=== PATIENT | female | born 1965 | race Caucasian/White ===

== ENCOUNTER → 2018-01-19 | Outpatient (CLI) | payer OTHER ==
[2018-01-19 13:04] LABS: Alanine Aminotransfer (ALT/SGP 39 U/L (12-78); Albumin, Blood 3.2 g/dL (3.4-5.0); Albumin/Globulin Ratio 0.7 (0.8-1.8); Alk Phos 92 U/L (50-136); Anion Gap 11 mmol/L (6-16); Aspartate Aminotrans (AST/SGOT 35 U/L (12-37); Bilirubin, Total 0.2 mg/dL (0.1-1.0); Blood Urea Nitrogen 15 mg/dL (8-24); Bun/Creatinine Ratio 19.2 (12.0-20.0); CHOL/HDL RATIO 3.1; CO2, Blood 25 mmol/L (21-32); Calcium, Blood 9.1 mg/dL (8.5-10.1); Chloride, Blood 103 mmol/L (98-108); Cholesterol 158 mg/dL (50-200); Creatinine, Blood 0.78 mg/dL (0.40-1.00); Globulin, Blood 4.4 g/dL (2.2-4.0); Glomerular Filtration Rate >60 (60-); Glucose, Blood 200 mg/dL (70-99); HDL Cholesterol 51 mg/dL (>39); LDL/HDL RATIO 1.4; Low Density Lipoprotein Chol 70 mg/dL (0-110); Potassium, Blood 4.4 mmol/L (3.5-5.5); Sodium, Blood 139 mmol/L (136-145); Total Protein, Blood 7.6 g/dL (6.4-8.2); Triglycerides 185 mg/dL (30-160); Very Low Density Lipoprot Chol 37 mg/dL (6-32)
== END ==
LOC: LAB SHORT 09:35
PROVIDERS: Nurse Practitioner Family
DX: Z11.59 Encounter for screening for other viral diseases (principal); E11.9 Type 2 diabetes mellitus without complications
CPT/HCPCS: 80053; 80061; 82607; 82746; 83036

== ENCOUNTER → 2018-02-19 | Outpatient (CLI) | payer OTHER ==
[~2018-02-19] MED LIST: AMLO10 PO; BENZ100A; Benazepril HCl10 MG PO; FOLI1 PO; FURO20 PO; Flurbiprofen100 MG; Glucophage1000 MG PO; INS70/30I SC; Omeprazole20 M1 PO; TRAZ150T57 PO
== END ==
LOC: LAB SHORT 09:12 → LAB EV 09:12
DX: E11.9 Type 2 diabetes mellitus without complications (principal)
CPT/HCPCS: 82043

== ENCOUNTER 2018-12-13 14:28 | Emergency (ER) | payer OTHER ==
[~2018-12-13] VITALS: Ht 165.1 cm; Wt 74.4 kg
[~2018-12-13 14:28] MED LIST changes: +ASPI81CH PO
[2018-12-13 15:02] LABS: BASOPHILS ABSOLUTE AUTO 0.04 K/mm3 (0.00-0.23); BASOPHILS PERCENT AUTO 0 % (0-2); EOSINOPHILS ABSOLUTE AUTO 0.16 K/mm3 (0.00-0.68); EOSINOPHILS PERCENT AUTO 1 % (0-6); Hematocrit 41.1 % (33.0-51.0); Hemoglobin 13.1 g/dL (11.5-16.0); IMMATURE GRAN ABSOLUTE AUTO 0.04 K/mm3 (0.00-0.10); IMMATURE GRAN PERCENT AUTO 0 % (0-1); LYMPHOCYTES ABSOLUTE AUTO 3.74 K/mm3 (0.84-5.20); LYMPHOCYTES PERCENT AUTO 29 % (21-46); MONOCYTES ABSOLUTE AUTO 0.76 K/mm3 (0.16-1.47); MONOCYTES PERCENT AUTO 6 % (4-13); Mean Corpuscular HGB 31.7 pg (26.0-34.0); Mean Corpuscular HGB Conc 31.9 g/dL (31.5-36.5); Mean Corpuscular Volume 100 fL (80-100); NEUTROPHILS ABSOLUTE AUTO 8.26 K/mm3 (1.96-9.15); NEUTROPHILS PERCENT AUTO 64 % (41-73); Platelet Count 432 K/mm3 (150-400); RDW Coefficient Variation 13.2 % (11.7-14.2); RDW Standard Deviation 48.1 fL (35.1-46.3); Red Blood Cell Count 4.13 M/mm3 (3.80-5.20)
[2018-12-13 15:41] LABS: Alanine Aminotransfer (ALT/SGP 23 U/L (12-78); Albumin, Blood 3.6 g/dL (3.4-5.0); Albumin/Globulin Ratio 0.8 (0.8-1.8); Alk Phos 80 U/L (50-136); Anion Gap 8 mmol/L (6-16); Aspartate Aminotrans (AST/SGOT 15 U/L (12-37); Bilirubin, Total 0.2 mg/dL (0.1-1.0); Blood Urea Nitrogen 9 mg/dL (8-24); Bun/Creatinine Ratio 12.7 (12.0-20.0); CO2, Blood 26 mmol/L (21-32); Calcium, Blood 9.5 mg/dL (8.5-10.1); Chloride, Blood 103 mmol/L (98-108); Creatinine, Blood 0.71 mg/dL (0.40-1.00); Globulin, Blood 4.6 g/dL (2.2-4.0); Glomerular Filtration Rate >60 (60-); Glucose, Blood 67 mg/dL (70-99); Potassium, Blood 3.7 mmol/L (3.5-5.5); Sodium, Blood 137 mmol/L (136-145); Total Protein, Blood 8.2 g/dL (6.4-8.2)
== END 2018-12-13 16:46 | disposition home or self-care (01) ==
LOC: ER 14:28
PROVIDERS: Physician Assistant
DX: G43.909 Migraine, unspecified, not intractable, without status migrainosus (principal); E11.9 Type 2 diabetes mellitus without complications; M06.9 Rheumatoid arthritis, unspecified; Z88.8 Allergy status to other drugs, medicaments and biological substances; Z79.82 Long term (current) use of aspirin; Z79.4 Long term (current) use of insulin; Z79.899 Other long term (current) drug therapy; Z87.891 Personal history of nicotine dependence
CPT/HCPCS: 36415; 80053; 85025; 96374; 96375; 99284-25; J0780; J1100; J1200; J1885

== ENCOUNTER → 2019-02-05 | Outpatient (CLI) | payer OTHER ==
[2019-02-07 17:06] LABS: HPV 16 Negative (Negative); HPV 18 Negative (Negative); HPV OTHER HR TYPES Negative (Negative)
== END | disposition home or self-care (01) ==
LOC: LAB 16:45 → LAB SHORT 16:45
PROVIDERS: Registered Nurse
DX: R87.612 Low grade squamous intraepithelial lesion on cytologic smear of cervix (LGSIL) (principal)
CPT/HCPCS: 87624; G0145

== ENCOUNTER → 2019-10-04 | Outpatient (CLI) | payer OTHER | END | disposition home or self-care (01) | LOC: LAB SHORT 08:12 → LAB 08:12 | DX: B35.1 Tinea unguium (principal) | CPT/HCPCS: 87210; 88305; 88312 ==

== ENCOUNTER 2020-10-31 18:16 | Emergency (ER) | payer OTHER ==
[~2020-10-31] VITALS: Ht 165.1 cm; Wt 82.5 kg
[2020-10-31] MEDS ORDERED: VENL75ER PO ×2 (18:49→20:42)
[2020-10-31] MEDS ORDERED: VERA180ERB PO (20:38)
[2020-10-31] MEDS ORDERED: Flurbiprofen100 MG PO (20:40)
[2020-10-31] MEDS ORDERED: FERSU300 PO (20:40)
[2020-10-31] MEDS ORDERED: BUTALB-ACETAMI1 EAC6 PO (20:41)
== END 2020-10-31 23:05 | disposition home or self-care (01) ==
LOC: ER 18:16
DX: G43.909 Migraine, unspecified, not intractable, without status migrainosus (principal); E11.9 Type 2 diabetes mellitus without complications; Z79.4 Long term (current) use of insulin; Z87.891 Personal history of nicotine dependence; Z79.899 Other long term (current) drug therapy
CPT/HCPCS: 36415; 70450; 96372-59; 96374; 96375; 99284-25; J1200; J1885; J2765; J3030; J7030

== ENCOUNTER 2021-04-21 10:33 | Day surgery (SDC) | payer OTHER ==
[~2021-04-21 10:33] MED LIST changes: +BUTALB-ACETAMI1 EAC6 PO; +FERSU300 PO; +Flurbiprofen100 MG PO; +VENL75ER PO; +VERA180ERB PO
--- NOTE | 2021-04-21 14:24 | NUR ---
04/21/21 1424 Miryam Araujo (Bre PT ATE AT 0900, NOTIFIED. DR VENESSA CORREA TO PROCEED WITH LOCAL ONLY, NO SEDATION. PT AGREEABLE. BEDSIDE INJECTION PERFORMED IN PRE-OP 5ML 2% LIDOCAINE WITH EPI 1:100,000 INJECTED BY SURGEON. PT TOLERATED WELL.
== END 2021-04-21 13:20 | disposition home or self-care (01) ==
LOC: ORSCSDS 10:33
PROVIDERS: Orthopaedic Surgery
PROC: 0LN70ZZ Release Right Hand Tendon, Open Approach (ICD-10-PCS; principal; 2021-04-21 12:00)
DX: M65.321 Trigger finger, right index finger (principal); M65.331 Trigger finger, right middle finger; I10 Essential (primary) hypertension; E66.9 Obesity, unspecified; Z68.30 Body mass index [BMI] 30.0-30.9, adult; E11.9 Type 2 diabetes mellitus without complications; Z79.4 Long term (current) use of insulin; Z79.899 Other long term (current) drug therapy
CPT/HCPCS: 82947; J0690; J7120

== ENCOUNTER → 2021-04-29 | Outpatient (CLI) | payer OTHER ==
[2021-04-29 15:27] LABS: BASOPHILS ABSOLUTE AUTO 0.07 K/mm3 (0.00-0.23); BASOPHILS PERCENT AUTO 1 % (0-2); EOSINOPHILS ABSOLUTE AUTO 0.27 K/mm3 (0.00-0.68); EOSINOPHILS PERCENT AUTO 3 % (0-6); Hematocrit 43.1 % (33.0-51.0); Hemoglobin 14.3 g/dL (11.5-16.0); IMMATURE GRAN ABSOLUTE AUTO 0.02 K/mm3 (0.00-0.10); IMMATURE GRAN PERCENT AUTO 0 % (0-1); LYMPHOCYTES PERCENT AUTO 36 % (21-46); MONOCYTES ABSOLUTE AUTO 0.63 K/mm3 (0.16-1.47); MONOCYTES PERCENT AUTO 6 % (4-13); Mean Corpuscular HGB Conc 33.2 g/dL (31.5-36.5); Mean Corpuscular Volume 93 fL (80-100); Mean Platelet Volume 9.5 fL (9.1-12.4); NEUTROPHILS ABSOLUTE AUTO 5.88 K/mm3 (1.96-9.15); NEUTROPHILS PERCENT AUTO 55 % (41-73); Platelet Count 432 K/mm3 (150-400); RDW Coefficient Variation 13.2 % (11.7-14.2); RDW Standard Deviation 45.4 fL (35.1-46.3); Red Blood Cell Count 4.62 M/mm3 (3.80-5.20); White Blood Cell Count 10.67 K/mm3 (4.00-11.30)
[2021-04-29 16:24] LABS: Albumin, Blood 3.5 g/dL (3.4-5.0); Albumin/Globulin Ratio 0.7 (0.8-1.8); Bilirubin, Total 0.3 mg/dL (0.1-1.0); Bun/Creatinine Ratio 11.2 (12.0-20.0); Calcium, Blood 9.5 mg/dL (8.5-10.1); Creatinine, Blood 0.98 mg/dL (0.40-1.00); Globulin, Blood 4.8 g/dL (2.2-4.0); Total Protein, Blood 8.3 g/dL (6.4-8.2)
== END | disposition home or self-care (01) ==
LOC: LAB 14:32 → LAB SHORT 14:32
PROVIDERS: Internal Medicine Rheumatology
DX: M05.9 Rheumatoid arthritis with rheumatoid factor, unspecified (principal)
CPT/HCPCS: 80053; 85025; 85651

== ENCOUNTER 2021-05-25 01:56 | Day surgery (SDC) | payer OTHER ==
[~2021-05-25] VITALS: Wt 85.6 kg
[~2021-05-25 01:56] MED LIST changes: +AZAT50 PO; +DICLOFENAC SOD100 GM TOP; +HYDSUL200; +INFLECTRA100 MG IV; +METF500 PO; +METO50ER PO; +RIZATRIPTAN10 MG SL; +TRULICITY1.5 MG/0.1 SC
[2021-05-25 14:28] LABS: BASOPHILS PERCENT AUTO 1 % (0-2); EOSINOPHILS ABSOLUTE AUTO 0.28 K/mm3 (0.00-0.68); EOSINOPHILS PERCENT AUTO 2 % (0-6); Hematocrit 43.1 % (33.0-51.0); Hemoglobin 14.4 g/dL (11.5-16.0); IMMATURE GRAN ABSOLUTE AUTO 0.03 K/mm3 (0.00-0.10); IMMATURE GRAN PERCENT AUTO 0 % (0-1); LYMPHOCYTES PERCENT AUTO 32 % (21-46); MONOCYTES ABSOLUTE AUTO 0.65 K/mm3 (0.16-1.47); MONOCYTES PERCENT AUTO 6 % (4-13); Mean Corpuscular HGB 30.6 pg (26.0-34.0); Mean Corpuscular HGB Conc 33.4 g/dL (31.5-36.5); Mean Corpuscular Volume 92 fL (80-100); Mean Platelet Volume 9.6 fL (9.1-12.4); NEUTROPHILS ABSOLUTE AUTO 6.94 K/mm3 (1.96-9.15); NEUTROPHILS PERCENT AUTO 59 % (41-73); NRBC ABSOLUTE 0.02 K/mm3 (0.00-0.02); NRBC Auto 0.2 /100 WBC (0.0-0.2); Platelet Count 428 K/mm3 (150-400); RDW Coefficient Variation 13.3 % (11.7-14.2); RDW Standard Deviation 45.3 fL (35.1-46.3)
== END 2021-05-25 16:22 | disposition home or self-care (01) ==
LOC: ATC 01:56
PROVIDERS: Internal Medicine Rheumatology
DX: M05.9 Rheumatoid arthritis with rheumatoid factor, unspecified (principal)
CPT/HCPCS: 84450; 85025; 85651; 96413; 96415; A9270; J7050; Q5103

== ENCOUNTER 2021-07-28 05:00 | Day surgery (SDC) | payer OTHER ==
[2021-07-28] MEDS ORDERED: CODEINE-GUAIFE120 M1 (09:18)
[2021-07-28 09:37] LABS: BASOPHILS ABSOLUTE AUTO 0.09 K/mm3 (0.00-0.23); BASOPHILS PERCENT AUTO 1 % (0-2); EOSINOPHILS ABSOLUTE AUTO 0.69 K/mm3 (0.00-0.68); EOSINOPHILS PERCENT AUTO 7 % (0-6); Hematocrit 41.6 % (33.0-51.0); Hemoglobin 13.7 g/dL (11.5-16.0); IMMATURE GRAN ABSOLUTE AUTO 0.03 K/mm3 (0.00-0.10); IMMATURE GRAN PERCENT AUTO 0 % (0-1); LYMPHOCYTES ABSOLUTE AUTO 2.95 K/mm3 (0.84-5.20); LYMPHOCYTES PERCENT AUTO 31 % (21-46); MONOCYTES ABSOLUTE AUTO 0.62 K/mm3 (0.16-1.47); MONOCYTES PERCENT AUTO 6 % (4-13); Mean Corpuscular HGB 31.1 pg (26.0-34.0); Mean Corpuscular HGB Conc 32.9 g/dL (31.5-36.5); Mean Corpuscular Volume 95 fL (80-100); Mean Platelet Volume 9.3 fL (9.1-12.4); NEUTROPHILS ABSOLUTE AUTO 5.27 K/mm3 (1.96-9.15); NEUTROPHILS PERCENT AUTO 55 % (41-73); Platelet Count 416 K/mm3 (150-400); RDW Coefficient Variation 14.2 % (11.7-14.2); RDW Standard Deviation 49.2 fL (35.1-46.3); White Blood Cell Count 9.65 K/mm3 (4.00-11.30)
== END 2021-07-28 11:06 | disposition home or self-care (01) ==
LOC: ATC 05:00
PROVIDERS: Internal Medicine Rheumatology
DX: M05.9 Rheumatoid arthritis with rheumatoid factor, unspecified (principal)
CPT/HCPCS: 84450; 85025; 85651; 96413; 96415; A9270; J7050; Q5103

== ENCOUNTER 2021-09-22 01:39 | Day surgery (SDC) | payer OTHER ==
[~2021-09-22 01:39] MED LIST changes: +CODEINE-GUAIFE120 M1
[2021-09-22 09:46] LABS: BASOPHILS ABSOLUTE AUTO 0.05 K/mm3 (0.00-0.23); BASOPHILS PERCENT AUTO 1 % (0-2); EOSINOPHILS ABSOLUTE AUTO 0.43 K/mm3 (0.00-0.68); EOSINOPHILS PERCENT AUTO 5 % (0-6); Hemoglobin 13.6 g/dL (11.5-16.0); IMMATURE GRAN ABSOLUTE AUTO 0.02 K/mm3 (0.00-0.10); IMMATURE GRAN PERCENT AUTO 0 % (0-1); LYMPHOCYTES ABSOLUTE AUTO 2.02 K/mm3 (0.84-5.20); LYMPHOCYTES PERCENT AUTO 23 % (21-46); MONOCYTES ABSOLUTE AUTO 0.49 K/mm3 (0.16-1.47); MONOCYTES PERCENT AUTO 6 % (4-13); Mean Corpuscular HGB 31.8 pg (26.0-34.0); Mean Corpuscular HGB Conc 33.2 g/dL (31.5-36.5); Mean Corpuscular Volume 96 fL (80-100); Mean Platelet Volume 9.6 fL (9.1-12.4); NEUTROPHILS ABSOLUTE AUTO 5.98 K/mm3 (1.96-9.15); NEUTROPHILS PERCENT AUTO 66 % (41-73); Platelet Count 362 K/mm3 (150-400); RDW Coefficient Variation 13.1 % (11.7-14.2); RDW Standard Deviation 46.5 fL (35.1-46.3); Red Blood Cell Count 4.28 M/mm3 (3.80-5.20); White Blood Cell Count 8.99 K/mm3 (4.00-11.30)
== END 2021-09-22 12:02 | disposition home or self-care (01) ==
LOC: ATC 01:39
PROVIDERS: Internal Medicine Rheumatology
DX: M05.9 Rheumatoid arthritis with rheumatoid factor, unspecified (principal)
CPT/HCPCS: 84450; 85025; 85651; A9270; J7050; Q5103

== ENCOUNTER 2022-01-14 00:32 | Day surgery (SDC) | payer OTHER ==
[2022-01-14 09:48] LABS: BASOPHILS ABSOLUTE AUTO 0.07 K/mm3 (0.00-0.23); BASOPHILS PERCENT AUTO 1 % (0-2); EOSINOPHILS ABSOLUTE AUTO 0.36 K/mm3 (0.00-0.68); EOSINOPHILS PERCENT AUTO 3 % (0-6); Hematocrit 41.9 % (33.0-51.0); Hemoglobin 13.7 g/dL (11.5-16.0); IMMATURE GRAN ABSOLUTE AUTO 0.02 K/mm3 (0.00-0.10); IMMATURE GRAN PERCENT AUTO 0 % (0-1); LYMPHOCYTES PERCENT AUTO 27 % (21-46); MONOCYTES ABSOLUTE AUTO 0.55 K/mm3 (0.16-1.47); MONOCYTES PERCENT AUTO 5 % (4-13); Mean Corpuscular HGB 31.6 pg (26.0-34.0); Mean Corpuscular HGB Conc 32.7 g/dL (31.5-36.5); Mean Corpuscular Volume 97 fL (80-100); Mean Platelet Volume 9.2 fL (9.1-12.4); NEUTROPHILS PERCENT AUTO 64 % (41-73); Platelet Count 403 K/mm3 (150-400); RDW Coefficient Variation 13.1 % (11.7-14.2); Red Blood Cell Count 4.34 M/mm3 (3.80-5.20)
--- NOTE | 2022-01-14 11:51 | NUR ---
LABS WERE DRAWN BY JAIMEE SILVA VIA IV START PER HOSPITAL PROTOCOL
== END 2022-01-14 11:40 | disposition home or self-care (01) ==
LOC: LAB 00:32 → ATC 00:32
PROVIDERS: Internal Medicine Rheumatology
DX: M05.9 Rheumatoid arthritis with rheumatoid factor, unspecified (principal); I10 Essential (primary) hypertension; G44.89 Other headache syndrome; E11.9 Type 2 diabetes mellitus without complications; Z87.891 Personal history of nicotine dependence
CPT/HCPCS: 84450; 85025; 85651; A9270; J7050; Q5103

== ENCOUNTER 2022-03-11 00:41 | Day surgery (SDC) | payer OTHER ==
[~2022-03-11] VITALS: Wt 87.0 kg
[2022-03-11 09:43] LABS: BASOPHILS ABSOLUTE AUTO 0.05 K/mm3 (0.00-0.23); BASOPHILS PERCENT AUTO 0 % (0-2); EOSINOPHILS ABSOLUTE AUTO 0.28 K/mm3 (0.00-0.68); EOSINOPHILS PERCENT AUTO 2 % (0-6); Hematocrit 40.8 % (33.0-51.0); Hemoglobin 13.5 g/dL (11.5-16.0); IMMATURE GRAN ABSOLUTE AUTO 0.04 K/mm3 (0.00-0.10); IMMATURE GRAN PERCENT AUTO 0 % (0-1); LYMPHOCYTES ABSOLUTE AUTO 2.52 K/mm3 (0.84-5.20); LYMPHOCYTES PERCENT AUTO 20 % (21-46); MONOCYTES PERCENT AUTO 3 % (4-13); Mean Corpuscular HGB 31.2 pg (26.0-34.0); Mean Corpuscular HGB Conc 33.1 g/dL (31.5-36.5); Mean Corpuscular Volume 94 fL (80-100); Mean Platelet Volume 9.7 fL (9.1-12.4); NEUTROPHILS ABSOLUTE AUTO 9.39 K/mm3 (1.96-9.15); NEUTROPHILS PERCENT AUTO 74 % (41-73); Platelet Count 514 K/mm3 (150-400); RDW Coefficient Variation 12.5 % (11.7-14.2); RDW Standard Deviation 43.2 fL (35.1-46.3); Red Blood Cell Count 4.33 M/mm3 (3.80-5.20); White Blood Cell Count 12.68 K/mm3 (4.00-11.30)
== END 2022-03-11 11:44 | disposition home or self-care (01) ==
LOC: ATC 00:41
PROVIDERS: Internal Medicine Rheumatology
DX: M05.9 Rheumatoid arthritis with rheumatoid factor, unspecified (principal); I10 Essential (primary) hypertension; E11.9 Type 2 diabetes mellitus without complications; Z88.5 Allergy status to narcotic agent; Z88.8 Allergy status to other drugs, medicaments and biological substances; Z79.899 Other long term (current) drug therapy; Z79.84 Long term (current) use of oral hypoglycemic drugs; Z79.4 Long term (current) use of insulin
CPT/HCPCS: 84450; 85025; 85651; 96413; 96415; A9270; J7050; Q5103

== ENCOUNTER 2022-05-12 01:24 | Day surgery (SDC) | payer OTHER ==
[2022-05-12 09:36] LABS: BASOPHILS ABSOLUTE AUTO 0.05 K/mm3 (0.00-0.23); BASOPHILS PERCENT AUTO 0 % (0-2); EOSINOPHILS ABSOLUTE AUTO 0.37 K/mm3 (0.00-0.68); EOSINOPHILS PERCENT AUTO 3 % (0-6); Hematocrit 39.6 % (33.0-51.0); Hemoglobin 12.7 g/dL (11.5-16.0); IMMATURE GRAN ABSOLUTE AUTO 0.04 K/mm3 (0.00-0.10); IMMATURE GRAN PERCENT AUTO 0 % (0-1); LYMPHOCYTES ABSOLUTE AUTO 2.91 K/mm3 (0.84-5.20); LYMPHOCYTES PERCENT AUTO 25 % (21-46); MONOCYTES ABSOLUTE AUTO 0.55 K/mm3 (0.16-1.47); MONOCYTES PERCENT AUTO 5 % (4-13); Mean Corpuscular HGB 30.1 pg (26.0-34.0); Mean Corpuscular HGB Conc 32.1 g/dL (31.5-36.5); Mean Corpuscular Volume 94 fL (80-100); Mean Platelet Volume 9.2 fL (9.1-12.4); NEUTROPHILS ABSOLUTE AUTO 7.94 K/mm3 (1.96-9.15); NEUTROPHILS PERCENT AUTO 67 % (41-73); Platelet Count 418 K/mm3 (150-400); RDW Coefficient Variation 13.4 % (11.7-14.2); RDW Standard Deviation 45.3 fL (35.1-46.3); Red Blood Cell Count 4.22 M/mm3 (3.80-5.20); White Blood Cell Count 11.86 K/mm3 (4.00-11.30)
== END 2022-05-12 12:05 | disposition home or self-care (01) ==
LOC: ATC 01:24
PROVIDERS: Internal Medicine Rheumatology
DX: M05.9 Rheumatoid arthritis with rheumatoid factor, unspecified (principal); I10 Essential (primary) hypertension; E11.9 Type 2 diabetes mellitus without complications; Z88.5 Allergy status to narcotic agent; Z88.8 Allergy status to other drugs, medicaments and biological substances; Z79.84 Long term (current) use of oral hypoglycemic drugs; Z79.899 Other long term (current) drug therapy
CPT/HCPCS: 84450; 85025; 85651; A9270; J7050; Q5103

== ENCOUNTER 2022-07-07 01:05 | Day surgery (SDC) | payer OTHER ==
[~2022-07-07] VITALS: Wt 88.3 kg
[2022-07-07 09:28] LABS: BASOPHILS ABSOLUTE AUTO 0.06 K/mm3 (0.00-0.23); BASOPHILS PERCENT AUTO 1 % (0-2); EOSINOPHILS ABSOLUTE AUTO 0.33 K/mm3 (0.00-0.68); EOSINOPHILS PERCENT AUTO 3 % (0-6); Hematocrit 40.7 % (33.0-51.0); Hemoglobin 13.3 g/dL (11.5-16.0); IMMATURE GRAN ABSOLUTE AUTO 0.04 K/mm3 (0.00-0.10); IMMATURE GRAN PERCENT AUTO 0 % (0-1); LYMPHOCYTES ABSOLUTE AUTO 2.75 K/mm3 (0.84-5.20); LYMPHOCYTES PERCENT AUTO 21 % (21-46); MONOCYTES ABSOLUTE AUTO 0.61 K/mm3 (0.16-1.47); MONOCYTES PERCENT AUTO 5 % (4-13); Mean Corpuscular HGB 30.4 pg (26.0-34.0); Mean Corpuscular HGB Conc 32.7 g/dL (31.5-36.5); Mean Corpuscular Volume 93 fL (80-100); NEUTROPHILS ABSOLUTE AUTO 9.33 K/mm3 (1.96-9.15); NEUTROPHILS PERCENT AUTO 71 % (41-73); Platelet Count 465 K/mm3 (150-400); RDW Coefficient Variation 13.1 % (11.7-14.2); RDW Standard Deviation 44.4 fL (35.1-46.3); Red Blood Cell Count 4.38 M/mm3 (3.80-5.20); White Blood Cell Count 13.12 K/mm3 (4.00-11.30)
== END 2022-07-07 11:50 | disposition home or self-care (01) ==
LOC: ATC 01:05
PROVIDERS: Internal Medicine Rheumatology
DX: M05.9 Rheumatoid arthritis with rheumatoid factor, unspecified (principal); Z88.5 Allergy status to narcotic agent; Z88.8 Allergy status to other drugs, medicaments and biological substances; G44.89 Other headache syndrome
CPT/HCPCS: 84450; 85025; 85651; 96413; 96415; A9270; J7050; Q5103

== ENCOUNTER 2022-09-15 01:22 | Day surgery (SDC) | payer OTHER ==
[~2022-09-15] VITALS: Wt 89.7 kg
[2022-09-15] MEDS ORDERED: AMIT25 PO (13:53)
[2022-09-15] MEDS ORDERED: BYDUREON B2 MG/0.81 SC (13:54)
[2022-09-15] MEDS ORDERED: HAIR, SKIN AND1 EAC3 PO (13:54)
[2022-09-15] MEDS ORDERED: MULVITA PO (13:55)
[2022-09-15 14:27] LABS: BASOPHILS ABSOLUTE AUTO 0.07 K/mm3 (0.00-0.23); BASOPHILS PERCENT AUTO 1 % (0-2); EOSINOPHILS ABSOLUTE AUTO 0.32 K/mm3 (0.00-0.68); EOSINOPHILS PERCENT AUTO 2 % (0-6); Hematocrit 39.4 % (33.0-51.0); Hemoglobin 13.2 g/dL (11.5-16.0); IMMATURE GRAN ABSOLUTE AUTO 0.04 K/mm3 (0.00-0.10); IMMATURE GRAN PERCENT AUTO 0 % (0-1); LYMPHOCYTES ABSOLUTE AUTO 3.69 K/mm3 (0.84-5.20); LYMPHOCYTES PERCENT AUTO 26 % (21-46); MONOCYTES ABSOLUTE AUTO 0.63 K/mm3 (0.16-1.47); MONOCYTES PERCENT AUTO 5 % (4-13); Mean Corpuscular HGB 30.8 pg (26.0-34.0); Mean Corpuscular HGB Conc 33.5 g/dL (31.5-36.5); Mean Corpuscular Volume 92 fL (80-100); Mean Platelet Volume 9.5 fL (9.1-12.4); NEUTROPHILS ABSOLUTE AUTO 9.38 K/mm3 (1.96-9.15); NEUTROPHILS PERCENT AUTO 66 % (41-73); Platelet Count 474 K/mm3 (150-400); RDW Coefficient Variation 13.6 % (11.7-14.2); RDW Standard Deviation 45.7 fL (35.1-46.3); Red Blood Cell Count 4.28 M/mm3 (3.80-5.20); White Blood Cell Count 14.13 K/mm3 (4.00-11.30)
== END 2022-09-15 16:04 | disposition home or self-care (01) ==
LOC: ATC 01:22
PROVIDERS: Internal Medicine Rheumatology
DX: M05.9 Rheumatoid arthritis with rheumatoid factor, unspecified (principal); Z88.5 Allergy status to narcotic agent; Z88.8 Allergy status to other drugs, medicaments and biological substances; I10 Essential (primary) hypertension; E11.9 Type 2 diabetes mellitus without complications
CPT/HCPCS: 84450; 85025; 85651; 96413; 96415; A9270; J7050; Q5103

== ENCOUNTER 2022-11-10 01:16 | Day surgery (SDC) | payer OTHER ==
[~2022-11-10 01:16] MED LIST changes: +AMIT25 PO; +BYDUREON B2 MG/0.81 SC; +HAIR, SKIN AND1 EAC3 PO; +MULVITA PO
[2022-11-10 09:06] VITALS: BP 137/86
[2022-11-10 09:22] LABS: BASOPHILS ABSOLUTE AUTO 0.06 K/mm3 (0.00-0.23); BASOPHILS PERCENT AUTO 1 % (0-2); EOSINOPHILS ABSOLUTE AUTO 0.19 K/mm3 (0.00-0.68); EOSINOPHILS PERCENT AUTO 2 % (0-6); Hematocrit 40.1 % (33.0-51.0); Hemoglobin 13.6 g/dL (11.5-16.0); IMMATURE GRAN ABSOLUTE AUTO 0.04 K/mm3 (0.00-0.10); IMMATURE GRAN PERCENT AUTO 0 % (0-1); LYMPHOCYTES ABSOLUTE AUTO 2.81 K/mm3 (0.84-5.20); LYMPHOCYTES PERCENT AUTO 22 % (21-46); MONOCYTES ABSOLUTE AUTO 0.53 K/mm3 (0.16-1.47); MONOCYTES PERCENT AUTO 4 % (4-13); Mean Corpuscular HGB Conc 33.9 g/dL (31.5-36.5); Mean Corpuscular Volume 91 fL (80-100); Mean Platelet Volume 9.2 fL (9.1-12.4); NEUTROPHILS ABSOLUTE AUTO 9.36 K/mm3 (1.96-9.15); NEUTROPHILS PERCENT AUTO 72 % (41-73); Platelet Count 477 K/mm3 (150-400); RDW Coefficient Variation 13.2 % (11.7-14.2); RDW Standard Deviation 44.5 fL (35.1-46.3); Red Blood Cell Count 4.39 M/mm3 (3.80-5.20); White Blood Cell Count 12.99 K/mm3 (4.00-11.30)
== END 2022-11-10 12:15 | disposition home or self-care (01) ==
LOC: ATC 01:16
PROVIDERS: Internal Medicine Rheumatology
DX: M05.9 Rheumatoid arthritis with rheumatoid factor, unspecified (principal)
CPT/HCPCS: 84450; 85025; 85651; 96413; 96415; A9270; J7050; Q5103

== ENCOUNTER → 2023-05-11 | Outpatient (CLI) | payer OTHER ==
[2023-05-11 16:57] LABS: BASOPHILS ABSOLUTE AUTO 0.04 K/mm3 (0.00-0.23); BASOPHILS PERCENT AUTO 0 % (0-2); EOSINOPHILS PERCENT AUTO 1 % (0-6); Hematocrit 38.8 % (33.0-51.0); IMMATURE GRAN ABSOLUTE AUTO 0.04 K/mm3 (0.00-0.10); IMMATURE GRAN PERCENT AUTO 0 % (0-1); LYMPHOCYTES ABSOLUTE AUTO 3.61 K/mm3 (0.84-5.20); LYMPHOCYTES PERCENT AUTO 25 % (21-46); MONOCYTES ABSOLUTE AUTO 0.56 K/mm3 (0.16-1.47); MONOCYTES PERCENT AUTO 4 % (4-13); Mean Corpuscular HGB 30.5 pg (26.0-34.0); Mean Corpuscular HGB Conc 33.5 g/dL (31.5-36.5); Mean Corpuscular Volume 91 fL (80-100); Mean Platelet Volume 9.4 fL (9.1-12.4); NEUTROPHILS ABSOLUTE AUTO 10.11 K/mm3 (1.96-9.15); NEUTROPHILS PERCENT AUTO 69 % (41-73); Platelet Count 404 K/mm3 (150-400); RDW Coefficient Variation 12.8 % (11.7-14.2); RDW Standard Deviation 41.5 fL (35.1-46.3); Red Blood Cell Count 4.26 M/mm3 (3.80-5.20); White Blood Cell Count 14.56 K/mm3 (4.00-11.30)
[2023-05-11 17:33] LABS: Albumin, Blood 3.5 g/dL (3.4-5.0); Albumin/Globulin Ratio 0.7 (0.8-1.8); Bilirubin, Total 0.2 mg/dL (0.1-1.0); Bun/Creatinine Ratio 13.3 (12.0-20.0); Creatinine, Blood 0.82 mg/dL (0.40-1.00); Globulin, Blood 4.8 g/dL (2.2-4.0); Potassium, Blood 3.9 mmol/L (3.5-5.5); Total Protein, Blood 8.3 g/dL (6.4-8.2)
== END | disposition home or self-care (01) ==
LOC: LAB 15:25 → LAB SHORT 15:25
PROVIDERS: Internal Medicine Rheumatology
DX: M05.9 Rheumatoid arthritis with rheumatoid factor, unspecified (principal)
CPT/HCPCS: 80053; 85025; 85651

== ENCOUNTER → 2023-07-11 | Outpatient (CLI) | payer OTHER ==
[2023-07-13 11:54] LABS: Stool Occult Bld Immuno 1 Negative (NEGATIVE)
== END | disposition home or self-care (01) ==
LOC: LAB SHORT 12:55 → LAB 12:55 → LAB SHORT 07-12 12:55
PROVIDERS: Family Medicine
DX: Z12.11 Encounter for screening for malignant neoplasm of colon (principal)
CPT/HCPCS: G0328

== ENCOUNTER → 2023-08-16 | Outpatient (CLI) | payer OTHER ==
[2023-08-16 11:57] LABS: BASOPHILS ABSOLUTE AUTO 0.05 K/mm3 (0.00-0.23); BASOPHILS PERCENT AUTO 1 % (0-2); EOSINOPHILS ABSOLUTE AUTO 0.18 K/mm3 (0.00-0.68); EOSINOPHILS PERCENT AUTO 2 % (0-6); Hematocrit 39.2 % (33.0-51.0); IMMATURE GRAN ABSOLUTE AUTO 0.02 K/mm3 (0.00-0.10); IMMATURE GRAN PERCENT AUTO 0 % (0-1); LYMPHOCYTES ABSOLUTE AUTO 3.33 K/mm3 (0.84-5.20); LYMPHOCYTES PERCENT AUTO 32 % (21-46); MONOCYTES ABSOLUTE AUTO 0.49 K/mm3 (0.16-1.47); MONOCYTES PERCENT AUTO 5 % (4-13); Mean Corpuscular HGB 30.5 pg (26.0-34.0); Mean Corpuscular HGB Conc 33.2 g/dL (31.5-36.5); Mean Corpuscular Volume 92 fL (80-100); Mean Platelet Volume 9.3 fL (9.1-12.4); NEUTROPHILS ABSOLUTE AUTO 6.21 K/mm3 (1.96-9.15); NEUTROPHILS PERCENT AUTO 60 % (41-73); Platelet Count 394 K/mm3 (150-400); RDW Coefficient Variation 13.1 % (11.7-14.2); RDW Standard Deviation 43.8 fL (35.1-46.3); Red Blood Cell Count 4.26 M/mm3 (3.80-5.20); White Blood Cell Count 10.28 K/mm3 (4.00-11.30)
[2023-08-16 12:46] LABS: Albumin, Blood 3.5 g/dL (3.4-5.0); Albumin/Globulin Ratio 0.8 (0.8-1.8); Bilirubin, Total 0.3 mg/dL (0.1-1.0); Bun/Creatinine Ratio 15.6 (12.0-20.0); Calcium, Blood 9.5 mg/dL (8.5-10.1); Creatinine, Blood 0.77 mg/dL (0.40-1.00); Globulin, Blood 4.6 g/dL (2.2-4.0); Potassium, Blood 3.8 mmol/L (3.5-5.5); Total Protein, Blood 8.1 g/dL (6.4-8.2)
== END ==
LOC: LAB SHORT 10:58 → LAB 10:58
PROVIDERS: Internal Medicine Rheumatology
DX: M05.9 Rheumatoid arthritis with rheumatoid factor, unspecified (principal)
CPT/HCPCS: 80053; 85025; 85651

== ENCOUNTER → 2024-10-10 | Outpatient (CLI) | payer OTHER ==
[2024-10-10 13:04] LABS: BASOPHILS ABSOLUTE AUTO 0.04 K/mm3 (0.00-0.23); BASOPHILS PERCENT AUTO 0 % (0-2); EOSINOPHILS ABSOLUTE AUTO 0.28 K/mm3 (0.00-0.68); EOSINOPHILS PERCENT AUTO 3 % (0-6); Hematocrit 40.4 % (33.0-51.0); Hemoglobin 13.7 g/dL (11.5-16.0); IMMATURE GRAN ABSOLUTE AUTO 0.02 K/mm3 (0.00-0.10); IMMATURE GRAN PERCENT AUTO 0 % (0-1); LYMPHOCYTES PERCENT AUTO 33 % (21-46); MONOCYTES ABSOLUTE AUTO 0.57 K/mm3 (0.16-1.47); MONOCYTES PERCENT AUTO 5 % (4-13); Mean Corpuscular HGB 31.6 pg (26.0-34.0); Mean Corpuscular HGB Conc 33.9 g/dL (31.5-36.5); Mean Corpuscular Volume 93 fL (80-100); Mean Platelet Volume 9.6 fL (9.1-12.4); NEUTROPHILS ABSOLUTE AUTO 6.13 K/mm3 (1.96-9.15); NEUTROPHILS PERCENT AUTO 58 % (41-73); Platelet Count 390 K/mm3 (150-400); RDW Standard Deviation 44.3 fL (35.1-46.3); Red Blood Cell Count 4.33 M/mm3 (3.80-5.20); White Blood Cell Count 10.54 K/mm3 (4.00-11.30)
[2024-10-10 13:21] LABS: Albumin, Blood 3.6 g/dL (3.4-5.0); Albumin/Globulin Ratio 0.8 (0.8-1.8); Bilirubin, Total 0.5 mg/dL (0.1-1.0); Bun/Creatinine Ratio 11.9 (12.0-20.0); Calcium, Blood 9.5 mg/dL (8.5-10.1); Creatinine, Blood 0.76 mg/dL (0.40-1.00); Globulin, Blood 4.6 g/dL (2.2-4.0); Potassium, Blood 3.8 mmol/L (3.5-5.5); Total Protein, Blood 8.2 g/dL (6.4-8.2)
== END ==
LOC: LAB SHORT 11:25 → LAB 11:25
PROVIDERS: Internal Medicine Rheumatology
DX: M05.9 Rheumatoid arthritis with rheumatoid factor, unspecified (principal)
CPT/HCPCS: 80053; 85025; 85651

== ENCOUNTER 2025-04-14 11:53 | Inpatient (IN) | payer OTHER ==
[~2025-04-14] VITALS: Ht 165.1 cm; Wt 97.0 kg
[2025-04-14] VITALS (8 sets, daily range): BP systolic 99–174; BP diastolic 51–80
[2025-04-14] MEDS ORDERED: NS 1,000 ML IV SCH ×2 (13:05→19:00)
[2025-04-14 13:39] LABS: Alanine Aminotransfer (ALT/SGP 49.0 U/L (12-78); Albumin, Blood 1.9 g/dL (3.4-5.0); Albumin/Globulin Ratio 0.3 (0.8-1.8); Anion Gap 19.0 mmol/L (3-11); Aspartate Aminotrans (AST/SGOT 80.0 U/L (12-37); Bilirubin, Total 1.0 mg/dL (0.1-1.0); Blood Urea Nitrogen 69.0 mg/dL (8-24); CO2, Blood 19.0 mmol/L (21-32); Calcium, Blood 7.8 mg/dL (8.5-10.1); Chloride, Blood 81.0 mmol/L (98-108); Creatinine, Blood 3.34 mg/dL (0.40-1.00); Globulin, Blood 5.8 g/dL (2.2-4.0); Glucose, Blood 637.0 mg/dL (70-99); Potassium, Blood 4.1 mmol/L (3.5-5.5); Sodium, Blood 115.0 mmol/L (136-145); Total Protein, Blood 7.7 g/dL (6.4-8.2)
[2025-04-14 14:16] LABS: Hematocrit 30.7 % (33.0-51.0); Hemoglobin 11.2 g/dL (11.5-16.0); Mean Corpuscular HGB Conc 36.5 g/dL (31.5-36.5); Mean Corpuscular Volume 87 fL (80-100); NRBC ABSOLUTE 0.00 K/mm3 (0.00-0.02); NRBC Auto 0.0 /100 WBC (0.0-0.2); Platelet Count 157 K/mm3 (150-400); RDW Coefficient Variation 13.4 % (11.7-14.2); RDW Standard Deviation 42.5 fL (35.1-46.3)
[2025-04-14] MEDS ORDERED: CefTRIAXone Sodium 1,000 MG in NS 50 ML IV ONE (14:25)
[2025-04-14 14:27] LABS: pH Blood Venous 7.30 (7.34-7.37)
[2025-04-14 14:35] LABS: BAND PERCENT MAN 2 % (0-8); BASOPHILS ABSOLUTE MAN 0.00 K/mm3 (0.00-0.23); BASOPHILS PERCENT MAN 0 % (0-2); EOSINOPHILS ABSOLUTE MAN 0.00 K/mm3 (0.00-0.68); EOSINOPHILS PERCENT MAN 0 % (0-6); LYMPHOCYTES ABSOLUTE MAN 0.64 K/mm3 (0.84-5.20); LYMPHOCYTES PERCENT MAN 2 % (21-46); MONOCYTES ABSOLUTE MAN 0.97 K/mm3 (0.16-1.47); MONOCYTES PERCENT MAN 3 % (4-13); NEUTROPHILS ABSOLUTE MAN 30.76 K/mm3 (1.96-9.15); SEG NEUTROPHILS PERCENT MAN 93 % (41-73)
[2025-04-14 14:49] LABS: CORONAVIRUS COVID-19 AG Negative (NEGATIVE)
[2025-04-14 15:11] LABS: Source, Urine Voided
[2025-04-14 15:15] LABS: Bilirubin, Urine Neg (Neg); Color, Urine Yellow (P-Yellow); Glucose Qualitative, Urine 4+ (Neg); Ketones, Urine 2+ (Neg); Leukocyte Esterase, Urine 3+ (Neg); Protein, Urine 3+ (Neg); Specific Gravity, Urine 1.010 (1.003-1.022); Urobilinogen, Urine NORM (Normal)
[2025-04-14 15:22] LABS: White Blood Cells, Urine TNTC /hpf (0-5)
[2025-04-14] MEDS ORDERED: FERROUS GLUCONATE PO (17:23)
[2025-04-14] MEDS ORDERED: AMIT25 PO (17:24)
[2025-04-14] MEDS ORDERED: AMLO10 PO (17:25)
[2025-04-14] MEDS ORDERED: DICLOFENAC 1% TOP (17:26)
[2025-04-14] MEDS ORDERED: Flurbiprofen100 MG PO (17:27)
[2025-04-14] MEDS ORDERED: HYDCHL50 PO (17:29)
[2025-04-14] MEDS ORDERED: Novolog SC (17:30)
[2025-04-14] MEDS ORDERED: BASAGLAR K100 UNIT/6 SC (17:31)
[2025-04-14] MEDS ORDERED: Zestril30 MG PO (17:32)
[2025-04-14] MEDS ORDERED: METFORMIN HCL500 M3 PO (17:33)
[2025-04-14] MEDS ORDERED: METO50ER PO (17:34)
[2025-04-14] MEDS ORDERED: OMEP20ER PO (17:35)
[2025-04-14] MEDS ORDERED: MAXALT10 MG PO (17:36)
[2025-04-14] MEDS ORDERED: TRAZ100 PO (17:37)
[2025-04-14] MEDS ORDERED: Magnesium Hydroxide Conc 10 ML UDC PO PRN (17:50)
[2025-04-14] MEDS ORDERED: Insulin Human Regular 100 UNIT/ML 10ML Vial IV ONE (17:50)
[2025-04-14] MEDS ORDERED: FLU VACC TS2025-26(6MOS UP)/PF 45 MCG/0.5 ML SYRINGE IM ONE (17:55)
[2025-04-14] MEDS ORDERED: Insulin Human Regular 100 UNIT in NS 100 ML IV SCH (18:40)
[2025-04-14] MEDS ORDERED: NS 1,000 ML IV ONE (18:59)
[2025-04-14 19:29] LABS: Anion Gap 21.0 mmol/L (3-11); Blood Urea Nitrogen 67.0 mg/dL (8-24); CO2, Blood 16.0 mmol/L (21-32); Calcium, Blood 7.6 mg/dL (8.5-10.1); Chloride, Blood 83.0 mmol/L (98-108); Creatinine, Blood 3.37 mg/dL (0.40-1.00); Glucose, Blood 638.0 mg/dL (70-99); Potassium, Blood 4.4 mmol/L (3.5-5.5); Sodium, Blood 116.0 mmol/L (136-145)
[2025-04-14 19:40] LABS: C-REACTIVE PROTEIN, EXT RANGE >19.000 mg/dL (0.000-0.300); Glucose, Blood 641 mg/dL (70-99)
[2025-04-14] MEDS ORDERED: Dextrose 50% 50 ML Vial IV PRN (19:40)
[2025-04-14] MEDS ORDERED: Insulin Regular 100 UNIT/ML 10ML Vial IV ONE (19:55)
[2025-04-14] MEDS ORDERED: Lactobacil 2-S.Thermo-Bifido 1 1 Cap PO SCH (21:00)
[2025-04-14] MEDS ORDERED: Piperacillin/Tazobactam Sod 3.375 GM in NS 100 ML IV SCH (21:00)
[2025-04-14 21:03] LABS: Anion Gap 22.0 mmol/L (3-11); Blood Urea Nitrogen 69.0 mg/dL (8-24); CO2, Blood 15.0 mmol/L (21-32); Calcium, Blood 7.8 mg/dL (8.5-10.1); Chloride, Blood 85.0 mmol/L (98-108); Creatinine, Blood 3.32 mg/dL (0.40-1.00); Glucose, Blood 606.0 mg/dL (70-99); Potassium, Blood 3.9 mmol/L (3.5-5.5); Sodium, Blood 118.0 mmol/L (136-145)
[2025-04-14 21:39] LABS: Glucose, Blood 504 mg/dL (70-99)
--- NOTE | 2025-04-14 22:15 | NUR ---
PT HAS INCREASED OXYGEN DEMAND. SWITCHED TO HUMIFIED HIGH FLOW NASAL CANNULA AT 10LPM.
--- NOTE | 2025-04-14 22:24 | NUR ---
ASSUMPTION OF CARE PT ARRIVED TO UNIT APPROX 193. PT IS DROWSY BUT ORIENTED TO SELF, PLACE, DATE/TIME, SITUATION. SINUS TACH IN THE 120S ON MONITOR, STABLE BP WITH MAP >65, SATS ARE LOW 90S ON 5L NC, KUSSMAUL RESPIRATIONS WITH A RATE IN THE HIGH 30S-LOW 40S. PT IS AFEBRILE, DENIES NAUSEA/VOMITING. PT ARRIVES WITH INSULIN DRIP INFUSING IN PIV IN LAC (SEE FLOWSHEET) AND NS INFUSING IN PIV IN LHA. ARRIVES WITH [employer] EXTERNAL DEVICE IN PLACE. CALL LIGHT WITHIN REACH.
[2025-04-14 23:50] LABS: Anion Gap 15.0 mmol/L (3-11); Blood Urea Nitrogen 66.0 mg/dL (8-24); CO2, Blood 20.0 mmol/L (21-32); Calcium, Blood 7.5 mg/dL (8.5-10.1); Chloride, Blood 92.0 mmol/L (98-108); Creatinine, Blood 3.32 mg/dL (0.40-1.00); Glucose, Blood 383.0 mg/dL (70-99); Potassium, Blood 3.7 mmol/L (3.5-5.5); Sodium, Blood 123.0 mmol/L (136-145)
[2025-04-15] VITALS (30 sets, daily range): BP systolic 115–166; BP diastolic 35–114
[2025-04-15 03:13] LABS: Hematocrit 26.8 % (33.0-51.0); Hemoglobin 9.7 g/dL (11.5-16.0); Mean Corpuscular HGB Conc 36.2 g/dL (31.5-36.5); Mean Corpuscular Volume 85 fL (80-100); NRBC ABSOLUTE 0.00 K/mm3 (0.00-0.02); NRBC Auto 0.0 /100 WBC (0.0-0.2); Platelet Count 137 K/mm3 (150-400); RDW Coefficient Variation 13.4 % (11.7-14.2); RDW Standard Deviation 41.8 fL (35.1-46.3)
[2025-04-15 03:32] LABS: BAND PERCENT MAN 5 % (0-8); BASOPHILS ABSOLUTE MAN 0.00 K/mm3 (0.00-0.23); BASOPHILS PERCENT MAN 0 % (0-2); EOSINOPHILS ABSOLUTE MAN 0.00 K/mm3 (0.00-0.68); EOSINOPHILS PERCENT MAN 0 % (0-6); LYMPHOCYTES ABSOLUTE MAN 1.72 K/mm3 (0.84-5.20); LYMPHOCYTES PERCENT MAN 5 % (21-46); MONOCYTES ABSOLUTE MAN 1.72 K/mm3 (0.16-1.47); MONOCYTES PERCENT MAN 5 % (4-13); NEUTROPHILS ABSOLUTE MAN 30.96 K/mm3 (1.96-9.15); SEG NEUTROPHILS PERCENT MAN 85 % (41-73)
[2025-04-15 03:41] LABS: Alanine Aminotransfer (ALT/SGP 45.0 U/L (12-78); Albumin, Blood 1.4 g/dL (3.4-5.0); Albumin/Globulin Ratio 0.3 (0.8-1.8); Anion Gap 13.0 mmol/L (3-11); Aspartate Aminotrans (AST/SGOT 85.0 U/L (12-37); Bilirubin, Total 1.0 mg/dL (0.1-1.0); Blood Urea Nitrogen 64.0 mg/dL (8-24); CO2, Blood 21.0 mmol/L (21-32); Calcium, Blood 7.6 mg/dL (8.5-10.1); Chloride, Blood 95.0 mmol/L (98-108); Creatinine, Blood 3.26 mg/dL (0.40-1.00); Globulin, Blood 5.2 g/dL (2.2-4.0); Glucose, Blood 252.0 mg/dL (70-99); Potassium, Blood 3.7 mmol/L (3.5-5.5); Sodium, Blood 125.0 mmol/L (136-145); Total Protein, Blood 6.6 g/dL (6.4-8.2)
[2025-04-15] MEDS ORDERED: D5W-1/2NS KCl 20mEq 1,000 ML IV SCH (04:00)
[2025-04-15] MEDS ORDERED: Piperacillin/Tazobactam Sod 4.5 GM in NS 100 ML IV SCH ×3 (04:42→21:00)
--- NOTE | 2025-04-15 06:22 | NUR ---
SHIFT SUMMARY PT IS ORIENTED TO SELF, PLACE, DATE/TIME AND SITUATION, SLEEPING BUT EASILY AROUSED AND ABLE TO FOLLOW CONVERSATION AND DIRECTIONS. REMAINS IN SINUS TACH IN THE 120S ON MONITOR, BP STABLE WITH MAP >65. SATS ARE LOW 90S ON AIRVO 40L/66% FIO2, RR HAS SLOWED FROM LOW 40S TO HIGH 20S. PT HAD INCREASED OXYGEN DEMANDS THROUGHOUT SHIFT, SEE NURSES NOTES FOR DETAILS. EXTERNAL FEMALE CATHETER IN PLACE AND ATTACHED TO SUCTION. INSULIN GTT INFUSING VIA PIV AT 6U/HR, D5 1/2 NS 20KCL INFUSING VIA POWERGLIDE IN LUE. DENIES UNMET NEEDS AT THIS TIME, CALL LIGHT WITHIN REACH.
[2025-04-15 06:40] LABS: Anion Gap 13.0 mmol/L (3-11); Blood Urea Nitrogen 64.0 mg/dL (8-24); CO2, Blood 20.0 mmol/L (21-32); Calcium, Blood 7.5 mg/dL (8.5-10.1); Chloride, Blood 97.0 mmol/L (98-108); Creatinine, Blood 3.19 mg/dL (0.40-1.00); Glucose, Blood 187.0 mg/dL (70-99); Potassium, Blood 3.8 mmol/L (3.5-5.5); Sodium, Blood 126.0 mmol/L (136-145)
[2025-04-15] MEDS ORDERED: CefTRIAXone Sodium 1,000 MG in NS 100 ML IV SCH (09:00)
[2025-04-15] MEDS ORDERED: Enoxaparin 30 MG/0.3 ML SYR SC SCH (09:00)
[2025-04-15 10:20] LABS: pH Blood Venous 7.46 (7.34-7.37)
[2025-04-15 10:24] LABS: Anion Gap 11.0 mmol/L (3-11); Blood Urea Nitrogen 64.0 mg/dL (8-24); CO2, Blood 21.0 mmol/L (21-32); Calcium, Blood 7.5 mg/dL (8.5-10.1); Chloride, Blood 98.0 mmol/L (98-108); Creatinine, Blood 3.32 mg/dL (0.40-1.00); Glucose, Blood 173.0 mg/dL (70-99); Potassium, Blood 3.8 mmol/L (3.5-5.5); Sodium, Blood 126.0 mmol/L (136-145)
[2025-04-15] MEDS ORDERED: Vancomycin (Pharmacy Consult) IV SCH (12:00)
[2025-04-15] MEDS ORDERED: AMIT25 PO (15:20)
[2025-04-15 16:10] LABS: Anion Gap 12.0 mmol/L (3-11); Blood Urea Nitrogen 62.0 mg/dL (8-24); CO2, Blood 20.0 mmol/L (21-32); Calcium, Blood 7.6 mg/dL (8.5-10.1); Chloride, Blood 100.0 mmol/L (98-108); Creatinine, Blood 3.32 mg/dL (0.40-1.00); Glucose, Blood 175.0 mg/dL (70-99); Potassium, Blood 3.8 mmol/L (3.5-5.5); Sodium, Blood 128.0 mmol/L (136-145)
[2025-04-15] MEDS ORDERED: D5W LR IV SCH (19:30)
[2025-04-15] MEDS ORDERED: POTASSIUM CHLORIDE IV SCH (19:30)
[2025-04-15 20:36] LABS: Anion Gap 12.0 mmol/L (3-11); Blood Urea Nitrogen 64.0 mg/dL (8-24); CO2, Blood 18.0 mmol/L (21-32); Calcium, Blood 8.1 mg/dL (8.5-10.1); Chloride, Blood 100.0 mmol/L (98-108); Creatinine, Blood 3.24 mg/dL (0.40-1.00); Glucose, Blood 153.0 mg/dL (70-99); Potassium, Blood 4.1 mmol/L (3.5-5.5); Sodium, Blood 126.0 mmol/L (136-145)
--- NOTE | 2025-04-15 21:00 | NUR ---
DR CONSULT DR NOTIFIED OF PT POSASSIUM LEVEL. NO ORDERS RELATED TO K REPLACEMENT AT THIS TIME. LAB ORDERED TO BE RECHECKED IN 4 HOURS @ 0000.
--- NOTE | 2025-04-15 22:13 | NUR ---
DR CONSULT DR WELSH CALLED NURSING STATION FOR UPDATE ON PT. ORDER PLACED FOR POTASSIUM REPLACEMENT R/T LAB RESULT OF K - 4.1 & INSULIN DRIP.
[2025-04-16] VITALS (30 sets, daily range): BP systolic 130–174; BP diastolic 44–106
[2025-04-16 00:58] LABS: Anion Gap 11.0 mmol/L (3-11); Blood Urea Nitrogen 57.0 mg/dL (8-24); CO2, Blood 19.0 mmol/L (21-32); Calcium, Blood 7.6 mg/dL (8.5-10.1); Chloride, Blood 100.0 mmol/L (98-108); Creatinine, Blood 3.22 mg/dL (0.40-1.00); Glucose, Blood 165.0 mg/dL (70-99); Potassium, Blood 4.4 mmol/L (3.5-5.5); Sodium, Blood 126.0 mmol/L (136-145)
--- NOTE | 2025-04-16 02:54 | NUR ---
DR CONSULT PT REPORTS ONSET OF MIRGRAINE. PT REQUESTS HOME MEDICATION. MD ORDER ONE TIME DOSE OF HOME MEDICATION FOR RELIEF.
[2025-04-16] MEDS ORDERED: Rizatriptan Benzoate 10 MG / TAB SoluTab SL ONE (02:55)
[2025-04-16 05:08] LABS: BASOPHILS ABSOLUTE AUTO 0.06 K/mm3 (0.00-0.23); BASOPHILS PERCENT AUTO 0 % (0-2); EOSINOPHILS ABSOLUTE AUTO 0.17 K/mm3 (0.00-0.68); EOSINOPHILS PERCENT AUTO 1 % (0-6); Hematocrit 23.0 % (33.0-51.0); Hemoglobin 8.4 g/dL (11.5-16.0); IMMATURE GRAN ABSOLUTE AUTO 0.37 K/mm3 (0.00-0.10); IMMATURE GRAN PERCENT AUTO 2 % (0-1); LYMPHOCYTES ABSOLUTE AUTO 1.74 K/mm3 (0.84-5.20); LYMPHOCYTES PERCENT AUTO 7 % (21-46); MONOCYTES ABSOLUTE AUTO 0.83 K/mm3 (0.16-1.47); MONOCYTES PERCENT AUTO 3 % (4-13); Mean Corpuscular HGB Conc 36.5 g/dL (31.5-36.5); Mean Corpuscular Volume 87 fL (80-100); NEUTROPHILS ABSOLUTE AUTO 22.08 K/mm3 (1.96-9.15); NEUTROPHILS PERCENT AUTO 87 % (41-73); NRBC ABSOLUTE 0.00 K/mm3 (0.00-0.02); NRBC Auto 0.0 /100 WBC (0.0-0.2); Platelet Count 123 K/mm3 (150-400); RDW Coefficient Variation 13.9 % (11.7-14.2); RDW Standard Deviation 43.6 fL (35.1-46.3)
[2025-04-16 05:41] LABS: Alanine Aminotransfer (ALT/SGP 144 U/L (12-78); Albumin, Blood 1.2 g/dL (3.4-5.0); Albumin/Globulin Ratio 0.3 (0.8-1.8); Aspartate Aminotrans (AST/SGOT 472 U/L (12-37); Bilirubin, Direct 1.6 mg/dL (0.0-0.3); Bilirubin, Indirect 0.4 mg/dL (0.1-0.7); Bilirubin, Total 2.0 mg/dL (0.1-1.0); Blood Urea Nitrogen 49 mg/dL (8-24); CO2, Blood 18 mmol/L (21-32); Calcium, Blood 7.3 mg/dL (8.5-10.1); Chloride, Blood 103 mmol/L (98-108); Creatinine, Blood 2.86 mg/dL (0.40-1.00); Globulin, Blood 4.6 g/dL (2.2-4.0); Glucose, Blood 466 mg/dL (70-99); Magnesium, Blood 1.4 mg/dL (1.6-2.4); Phosphorus, Blood 2.0 mg/dL (2.5-4.9); Sodium, Blood 127 mmol/L (136-145); Total Protein, Blood 5.8 g/dL (6.4-8.2)
[2025-04-16 05:48] LABS: Anion Gap 12 mmol/L (3-11); Potassium, Blood 6.3 mmol/L (3.5-5.5); Vancomycin, Random 18.2 ug/mL
--- NOTE | 2025-04-16 06:19 | NUR ---
SHIFT SUMMARY S/P DKA. A&O x4. FOLLOWS COMMANDS. SPO2 >94% ON ARIVO @ 40L / 70% FIO2. SINUS TACH IN 110s, MAP >65. TOLERATING WATER, DENIES N/V. INSULIN INFUSING @ 3UNITS/HR. FREQUENT VOIDS, BM x2 THIS SHIFT. PT ABLE TO STAND/PIVOT TO BSC c MIN ASSISTANCE. PT AMB TO SINK TO BRUSH TEETH, PT REPORT INCREASED WORK OF BREATHING c AMB, PT UNSTEADY ON FEET WHEN WALKING BACK TO BED. 0500 LAB SAMPLE CONTAMINATED. NOTIFIED OF LAB VALUES & REORDERED ALL AM LABS. AWAITING RESULTS. PT RESTING ON BACK, HOB ELEVATED, CALL LIGHT IN REACH, WILL REPORT TO DAY RN.
[2025-04-16 06:33] LABS: BASOPHILS ABSOLUTE AUTO 0.09 K/mm3 (0.00-0.23); BASOPHILS PERCENT AUTO 0 % (0-2); EOSINOPHILS ABSOLUTE AUTO 0.19 K/mm3 (0.00-0.68); EOSINOPHILS PERCENT AUTO 1 % (0-6); Hematocrit 27.6 % (33.0-51.0); Hemoglobin 10.1 g/dL (11.5-16.0); IMMATURE GRAN ABSOLUTE AUTO 0.54 K/mm3 (0.00-0.10); IMMATURE GRAN PERCENT AUTO 2 % (0-1); LYMPHOCYTES ABSOLUTE AUTO 2.15 K/mm3 (0.84-5.20); LYMPHOCYTES PERCENT AUTO 7 % (21-46); MONOCYTES ABSOLUTE AUTO 0.92 K/mm3 (0.16-1.47); MONOCYTES PERCENT AUTO 3 % (4-13); Mean Corpuscular HGB Conc 36.6 g/dL (31.5-36.5); Mean Corpuscular Volume 85 fL (80-100); NEUTROPHILS ABSOLUTE AUTO 24.99 K/mm3 (1.96-9.15); NEUTROPHILS PERCENT AUTO 87 % (41-73); NRBC ABSOLUTE 0.00 K/mm3 (0.00-0.02); NRBC Auto 0.0 /100 WBC (0.0-0.2); Platelet Count 139 K/mm3 (150-400); RDW Coefficient Variation 14.1 % (11.7-14.2); RDW Standard Deviation 43.8 fL (35.1-46.3)
[2025-04-16] MEDS ORDERED: Piperacillin/Tazobactam Sod 4.5 GM in NS 100 ML IV SCH (08:00)
[2025-04-16 08:33] LABS: Alanine Aminotransfer (ALT/SGP 178 U/L (12-78); Albumin, Blood 1.4 g/dL (3.4-5.0); Albumin/Globulin Ratio 0.3 (0.8-1.8); Anion Gap 16 mmol/L (3-11); Aspartate Aminotrans (AST/SGOT 545 U/L (12-37); Bilirubin, Direct 1.9 mg/dL (0.0-0.3); Bilirubin, Indirect 0.4 mg/dL (0.1-0.7); Bilirubin, Total 2.3 mg/dL (0.1-1.0); Blood Urea Nitrogen 58 mg/dL (8-24); CO2, Blood 20 mmol/L (21-32); Calcium, Blood 8.1 mg/dL (8.5-10.1); Chloride, Blood 96 mmol/L (98-108); Creatinine, Blood 3.52 mg/dL (0.40-1.00); Globulin, Blood 5.6 g/dL (2.2-4.0); Glucose, Blood 162 mg/dL (70-99); Magnesium, Blood 1.5 mg/dL (1.6-2.4); Phosphorus, Blood 2.2 mg/dL (2.5-4.9); Sodium, Blood 127 mmol/L (136-145); Total Protein, Blood 7.0 g/dL (6.4-8.2)
[2025-04-16 08:38] LABS: Potassium, Blood 4.7 mmol/L (3.5-5.5)
[2025-04-16 10:32] LABS: Anion Gap 11.0 mmol/L (3-11); Blood Urea Nitrogen 55.0 mg/dL (8-24); CO2, Blood 19.0 mmol/L (21-32); Calcium, Blood 7.5 mg/dL (8.5-10.1); Chloride, Blood 98.0 mmol/L (98-108); Creatinine, Blood 3.12 mg/dL (0.40-1.00); Glucose, Blood 365.0 mg/dL (70-99); Potassium, Blood 4.8 mmol/L (3.5-5.5); Sodium, Blood 123.0 mmol/L (136-145)
[2025-04-16 12:39] LABS: Vancomycin, Random 20.6 ug/mL
[2025-04-16] MEDS ORDERED: CefTRIAXone Sodium 1,000 MG in NS 100 ML IV SCH (16:00)
[2025-04-16 16:38] LABS: Anion Gap 12.0 mmol/L (3-11); Blood Urea Nitrogen 55.0 mg/dL (8-24); CO2, Blood 19.0 mmol/L (21-32); Calcium, Blood 8.1 mg/dL (8.5-10.1); Chloride, Blood 98.0 mmol/L (98-108); Creatinine, Blood 3.03 mg/dL (0.40-1.00); Glucose, Blood 296.0 mg/dL (70-99); Potassium, Blood 4.4 mmol/L (3.5-5.5); Sodium, Blood 125.0 mmol/L (136-145)
--- NOTE | 2025-04-16 18:28 | NUR ---
Patient continues in ICU with apparent overdose, and gram negative rods found in her urine and blood cultures. Sedation interruption performed at 09:00 to 09:15. Sedation restarted due to increased patient agitation/reaching for ETT. Right pupil found to be larger than left pupil (see Shift Assessment) Dr Scanlon aware, even though patient not following commands during sedation interruption , patient was moving all four extremities and tracking, therefore no further workup done by MD. Spoke with Pratik from Poison control, updated him with latest AST & ALT values (see labs), per Pratik since AST & ALT is trending down, acetylcysteine infusion can be D/C'd when current bag is complete. Levopheod infusion was titrated to MAP >65 this shift, with a high of 6mcg/min to a low and current rate of 2 mcg/min.
--- NOTE | 2025-04-16 18:58 | NUR ---
ASSUMPTION OF CARE RECEIVED REPORT FROM SANTANA HERMOSILLO. PT ASLEEP, RESTING IN BED ON HER L SIDE. HR 121, MAP >65. O2 SAT >93% ON AIRVO 30L @ 32% FiO2. DAY RN REPORTS FREQUENT VOIDS. GLUCOSE CHECKS CURRENTLY Q1 HR R/T UPWARD TREND IN RESULTS. INSULIN INFUSING @ 10UNITS/HR. IV FLUIDS INFUSING @ 150/HR. CALL LIGHT IN REACH.
--- NOTE | 2025-04-16 19:18 | NUR ---
Patient remains on ICU with ongoing treatments for DKA, UTI, CAYDEN and PNA (see MD notes for workup). Patient's supplemental oxygen needs decreased to HFNC 30% Fio2 and 30L during shift. Patient remains on insulin infusion per DKA protocol and D5/LR with potassium for hypoglycemic prevention which per Dr Scanlon to continue with this formula until gap closes. Reviewed 16:[address] Capo MD compared panel with 09:00 results. MD will continue with current interventions as no sigificant changes noted in 16:00 results. Next chemistry panel to be collected at 05:00 as believes there is a low likelihood of gap closing before then.
[2025-04-16] MEDS ORDERED: D5W LR IV SCH (20:30)
[2025-04-16] MEDS ORDERED: POTASSIUM CHLORIDE IV SCH (20:30)
[2025-04-16 22:21] LABS: Albumin, Blood 1.5 g/dL (3.4-5.0); Anion Gap 12 mmol/L (3-11); Blood Urea Nitrogen 54 mg/dL (8-24); CO2, Blood 18 mmol/L (21-32); Calcium, Blood 7.6 mg/dL (8.5-10.1); Chloride, Blood 101 mmol/L (98-108); Creatinine, Blood 2.89 mg/dL (0.40-1.00); Glucose, Blood 143 mg/dL (70-99); Phosphorus, Blood 2.2 mg/dL (2.5-4.9); Potassium, Blood 4.3 mmol/L (3.5-5.5); Sodium, Blood 127 mmol/L (136-145)
[2025-04-17] VITALS (12 sets, daily range): BP systolic 121–159; BP diastolic 47–104
[2025-04-17 06:05] LABS: Hematocrit 26.3 % (33.0-51.0); Hemoglobin 9.6 g/dL (11.5-16.0); Mean Corpuscular HGB Conc 36.5 g/dL (31.5-36.5); Mean Corpuscular Volume 86 fL (80-100); NRBC ABSOLUTE 0.00 K/mm3 (0.00-0.02); NRBC Auto 0.0 /100 WBC (0.0-0.2); Platelet Count 173 K/mm3 (150-400); RDW Coefficient Variation 14.1 % (11.7-14.2); RDW Standard Deviation 43.9 fL (35.1-46.3)
[2025-04-17 06:30] LABS: Albumin, Blood 1.5 g/dL (3.4-5.0); Anion Gap 11 mmol/L (3-11); Blood Urea Nitrogen 51 mg/dL (8-24); CO2, Blood 19 mmol/L (21-32); Calcium, Blood 7.8 mg/dL (8.5-10.1); Chloride, Blood 99 mmol/L (98-108); Creatinine, Blood 2.76 mg/dL (0.40-1.00); Glucose, Blood 168 mg/dL (70-99); Phosphorus, Blood 2.6 mg/dL (2.5-4.9); Potassium, Blood 4.2 mmol/L (3.5-5.5); Sodium, Blood 125 mmol/L (136-145)
--- NOTE | 2025-04-17 06:54 | NUR ---
SHIFT SUMMARY S/P DKA. A&O x4. FOLLOWS COMMANDS. SPO2 >90% ON HFNC @ 3L. SINUS TACH IN 110s, MAP >65. TOLERATING WATER/ICE CHIPS, DENIES N/V. INSULIN INFUSING @ 2.6UNITS/HR. Q1 GLUCOSE CHECKS. D5LR c 10KCL INFUSING @ 125mL/HR. FREQUENT VOIDS/BMs THIS SHIFT. PT ABLE TO STAND/PIVOT TO BSC c MIN ASSISTANCE. PT SAT IN CHAIR FOR APPROX 1HR. PT DID NOT SLEEP WELL OVERNIGHT. PT REPORTS SOME BACK PAIN R/T PROLONGED TIMES LYING IN BED. PT RESTING ON R SIDE, HOB ELEVATED, CALL LIGHT IN REACH, WILL REPORT TO DAY RN.
[2025-04-17] MEDS ORDERED: GuaiFENesin 100 MG/5 ML 5ML UDC PO PRN (11:10)
[2025-04-17] MEDS ORDERED: Insulin Regular 100 UNIT/ML 10ML Vial SC SCH (11:30)
[2025-04-17] MEDS ORDERED: Insulin Glargine 100 Unit/ML 3 ML SYR SC SCH (12:00)
[2025-04-17] MEDS ORDERED: Insulin Glargine-Yfgn 100 Unit/mL 3 ML SYR SC SCH (12:00)
[2025-04-17] MEDS ORDERED: Insulin Human Lispro 100 Units/ML 3ML Syringe SC SCH (12:30)
[2025-04-17 14:47] LABS: Albumin, Blood 1.4 g/dL (3.4-5.0); Anion Gap 14 mmol/L (3-11); Blood Urea Nitrogen 52 mg/dL (8-24); CO2, Blood 18 mmol/L (21-32); Calcium, Blood 7.7 mg/dL (8.5-10.1); Chloride, Blood 98 mmol/L (98-108); Creatinine, Blood 2.71 mg/dL (0.40-1.00); Glucose, Blood 213 mg/dL (70-99); Phosphorus, Blood 3.0 mg/dL (2.5-4.9); Potassium, Blood 4.2 mmol/L (3.5-5.5); Sodium, Blood 126 mmol/L (136-145)
--- NOTE | 2025-04-17 17:46 | NUR ---
SHIFT SUMMARY: PT REMAINS A&O X 4, ABLE TO COMMUNICATE NEEDS. PT DENIES PAIN. PT REMAINS ON 3L OF OXYGEN, SPO2 ABOVE 92% PT C/O SOB WITH ACTIVITY, RECOVERS QUICKLY. PT IN SR TO ST, 98-110, BP STABLE. PT OFF INSULIN DRIP SINCE 1238, TRANSITIONED TO SUBQ. PT TOLERATING PO INTAKE, DENIES NAUSEA. PT USING BSC WITH 1 PERSON ASSIST, PT C/O FREQUENCY WITH URINATION. LOOSE SMALL BM THIS SHIFT. PT UP IN CHAIR FOR ALL MEALS.
[2025-04-17] MEDS ORDERED: NS 250 ML IV PRN (18:00)
--- NOTE | 2025-04-17 21:30 | NUR ---
PT TRANSFER: PT TRANSFER FROM ICU 12 TO MED FLOOR ROOM 303 AT [id number]. PT REPORT GIVE BY ADIS MAIL MESSENGER CONTRACTOR AT 1827. PT ARRIVED IN WHEELCHAIR WITH PERSON THINGS (TABLET, PURSE AND PHONE CHARGE). PT VS TAKEN AND WEIGHT TAKEN. PT ORIENTED TO ROOM AD GIVEN A SHOWER PER PT AND ICU NURSE REQUEST.
[2025-04-17 22:54] LABS: Albumin, Blood 1.5 g/dL (3.4-5.0); Anion Gap 12 mmol/L (3-11); Blood Urea Nitrogen 54 mg/dL (8-24); CO2, Blood 21 mmol/L (21-32); Calcium, Blood 7.8 mg/dL (8.5-10.1); Chloride, Blood 97 mmol/L (98-108); Creatinine, Blood 2.63 mg/dL (0.40-1.00); Glucose, Blood 192 mg/dL (70-99); Phosphorus, Blood 3.2 mg/dL (2.5-4.9); Potassium, Blood 4.3 mmol/L (3.5-5.5); Sodium, Blood 126 mmol/L (136-145)
--- NOTE | 2025-04-18 03:09 | NUR ---
SHIFT SUMMARY: PT WAS AN ICU TRANSFER AT THE BEGINING OF SHIFT. PT IS AOX4 AND ABLE TO MAKE NEEDS KNOWN. PT HAS TELE IN PLACE AND A POWERGLIDE ON THE UPPER LEFT ARM THAT DRAWS AT THIS TIME. PT WAS MEDICATED PER EMAR. NO ACUTE CHNAGES THIS SHIFT.
[2025-04-18 03:11] VITALS: BP 127/51
[2025-04-18 06:43] LABS: BASOPHILS ABSOLUTE AUTO 0.05 K/mm3 (0.00-0.23); BASOPHILS PERCENT AUTO 0 % (0-2); EOSINOPHILS ABSOLUTE AUTO 0.16 K/mm3 (0.00-0.68); EOSINOPHILS PERCENT AUTO 1 % (0-6); Hematocrit 20.8 % (33.0-51.0); Hemoglobin 7.5 g/dL (11.5-16.0); IMMATURE GRAN ABSOLUTE AUTO 0.42 K/mm3 (0.00-0.10); IMMATURE GRAN PERCENT AUTO 2 % (0-1); LYMPHOCYTES ABSOLUTE AUTO 1.86 K/mm3 (0.84-5.20); LYMPHOCYTES PERCENT AUTO 9 % (21-46); MONOCYTES ABSOLUTE AUTO 0.98 K/mm3 (0.16-1.47); MONOCYTES PERCENT AUTO 5 % (4-13); Mean Corpuscular HGB Conc 36.1 g/dL (31.5-36.5); Mean Corpuscular Volume 85 fL (80-100); NEUTROPHILS ABSOLUTE AUTO 16.26 K/mm3 (1.96-9.15); NEUTROPHILS PERCENT AUTO 82 % (41-73); NRBC ABSOLUTE 0.00 K/mm3 (0.00-0.02); NRBC Auto 0.0 /100 WBC (0.0-0.2); Platelet Count 157 K/mm3 (150-400); RDW Coefficient Variation 13.7 % (11.7-14.2); RDW Standard Deviation 42.7 fL (35.1-46.3)
[2025-04-18 07:10] LABS: Albumin, Blood 1.1 g/dL (3.4-5.0); Anion Gap 12 mmol/L (3-11); Blood Urea Nitrogen 46 mg/dL (8-24); CO2, Blood 14 mmol/L (21-32); Calcium, Blood 5.7 mg/dL (8.5-10.1); Chloride, Blood 112 mmol/L (98-108); Creatinine, Blood 1.97 mg/dL (0.40-1.00); Glucose, Blood 149 mg/dL (70-99); Phosphorus, Blood 2.8 mg/dL (2.5-4.9); Potassium, Blood 3.1 mmol/L (3.5-5.5); Sodium, Blood 135 mmol/L (136-145)
[2025-04-18 07:41] VITALS: BP 132/61
[2025-04-18] MEDS ORDERED: Lidocaine 4% 1 Patch TOP SCH (09:00)
[2025-04-18 10:17] LABS: BASOPHILS ABSOLUTE AUTO 0.06 K/mm3 (0.00-0.23); BASOPHILS PERCENT AUTO 0 % (0-2); EOSINOPHILS ABSOLUTE AUTO 0.30 K/mm3 (0.00-0.68); EOSINOPHILS PERCENT AUTO 1 % (0-6); Hematocrit 20.9 % (33.0-51.0); Hemoglobin 7.6 g/dL (11.5-16.0); IMMATURE GRAN ABSOLUTE AUTO 0.51 K/mm3 (0.00-0.10); IMMATURE GRAN PERCENT AUTO 2 % (0-1); LYMPHOCYTES ABSOLUTE AUTO 2.62 K/mm3 (0.84-5.20); LYMPHOCYTES PERCENT AUTO 9 % (21-46); MONOCYTES ABSOLUTE AUTO 1.50 K/mm3 (0.16-1.47); MONOCYTES PERCENT AUTO 5 % (4-13); Mean Corpuscular HGB Conc 36.4 g/dL (31.5-36.5); Mean Corpuscular Volume 85 fL (80-100); NEUTROPHILS ABSOLUTE AUTO 23.90 K/mm3 (1.96-9.15); NEUTROPHILS PERCENT AUTO 83 % (41-73); NRBC ABSOLUTE 0.00 K/mm3 (0.00-0.02); NRBC Auto 0.0 /100 WBC (0.0-0.2); Platelet Count 248 K/mm3 (150-400); RDW Coefficient Variation 13.9 % (11.7-14.2); RDW Standard Deviation 43.2 fL (35.1-46.3)
[2025-04-18 10:38] LABS: Albumin, Blood 1.4 g/dL (3.4-5.0); Anion Gap 13 mmol/L (3-11); Blood Urea Nitrogen 59 mg/dL (8-24); CO2, Blood 18 mmol/L (21-32); Calcium, Blood 7.5 mg/dL (8.5-10.1); Chloride, Blood 99 mmol/L (98-108); Creatinine, Blood 2.63 mg/dL (0.40-1.00); Glucose, Blood 252 mg/dL (70-99); Phosphorus, Blood 3.8 mg/dL (2.5-4.9); Potassium, Blood 4.2 mmol/L (3.5-5.5); Sodium, Blood 126 mmol/L (136-145)
[2025-04-18] MEDS ORDERED: Insulin Human Lispro 100 Units/ML 3ML Syringe SC SCH (11:30)
[2025-04-18 12:19] VITALS: BP 137/55
[2025-04-18 15:06] LABS: BASOPHILS ABSOLUTE AUTO 0.06 K/mm3 (0.00-0.23); BASOPHILS PERCENT AUTO 0 % (0-2); EOSINOPHILS ABSOLUTE AUTO 0.24 K/mm3 (0.00-0.68); EOSINOPHILS PERCENT AUTO 1 % (0-6); Hematocrit 21.7 % (33.0-51.0); Hemoglobin 7.8 g/dL (11.5-16.0); IMMATURE GRAN ABSOLUTE AUTO 0.41 K/mm3 (0.00-0.10); IMMATURE GRAN PERCENT AUTO 2 % (0-1); LYMPHOCYTES ABSOLUTE AUTO 2.60 K/mm3 (0.84-5.20); LYMPHOCYTES PERCENT AUTO 10 % (21-46); MONOCYTES ABSOLUTE AUTO 1.03 K/mm3 (0.16-1.47); MONOCYTES PERCENT AUTO 4 % (4-13); Mean Corpuscular HGB Conc 35.9 g/dL (31.5-36.5); Mean Corpuscular Volume 85 fL (80-100); NEUTROPHILS ABSOLUTE AUTO 22.52 K/mm3 (1.96-9.15); NEUTROPHILS PERCENT AUTO 84 % (41-73); NRBC ABSOLUTE 0.00 K/mm3 (0.00-0.02); NRBC Auto 0.0 /100 WBC (0.0-0.2); Platelet Count 277 K/mm3 (150-400); RDW Coefficient Variation 14.1 % (11.7-14.2); RDW Standard Deviation 43.8 fL (35.1-46.3)
[2025-04-18 15:21] VITALS: BP 131/53
[2025-04-18 16:38] LABS: Albumin, Blood 1.4 g/dL (3.4-5.0); Anion Gap 14 mmol/L (3-11); Blood Urea Nitrogen 61 mg/dL (8-24); CO2, Blood 16 mmol/L (21-32); Calcium, Blood 7.8 mg/dL (8.5-10.1); Chloride, Blood 99 mmol/L (98-108); Creatinine, Blood 2.71 mg/dL (0.40-1.00); Glucose, Blood 272 mg/dL (70-99); Phosphorus, Blood 3.9 mg/dL (2.5-4.9); Potassium, Blood 4.1 mmol/L (3.5-5.5); Sodium, Blood 125 mmol/L (136-145)
--- NOTE | 2025-04-18 19:28 | NUR ---
SHIFT SUMMARY PATIENT ALERT AND INTERACTIVE THROUGHOUT THIS SHIFT. PATIENT INDEPENDENT IN HER ROOM AND CALLS APPROPRIATELY WHEN NEEDING ASSISTANCE. INSULIN WAS HELD THIS AM DUE TO QUESTIONS REGARDING INSULIN DOSES. EDEMA NOTED TO BLE AND ABDOMEN. CALL LIGHT WITHIN REACH.
[2025-04-18 20:07] VITALS: BP 147/64
[2025-04-19] VITALS (8 sets, daily range): BP systolic 120–165; BP diastolic 48–70
--- NOTE | 2025-04-19 05:15 | NUR ---
THIS RN REVIEWED TELEMETRY STRIP AND AGREES c INTERPRETATION.
[2025-04-19 05:28] LABS: BASOPHILS ABSOLUTE AUTO 0.09 K/mm3 (0.00-0.23); BASOPHILS PERCENT AUTO 0 % (0-2); EOSINOPHILS ABSOLUTE AUTO 0.34 K/mm3 (0.00-0.68); EOSINOPHILS PERCENT AUTO 1 % (0-6); Hematocrit 22.3 % (33.0-51.0); Hemoglobin 8.1 g/dL (11.5-16.0); IMMATURE GRAN ABSOLUTE AUTO 0.78 K/mm3 (0.00-0.10); IMMATURE GRAN PERCENT AUTO 2 % (0-1); LYMPHOCYTES ABSOLUTE AUTO 3.14 K/mm3 (0.84-5.20); LYMPHOCYTES PERCENT AUTO 10 % (21-46); MONOCYTES ABSOLUTE AUTO 1.34 K/mm3 (0.16-1.47); MONOCYTES PERCENT AUTO 4 % (4-13); Mean Corpuscular HGB Conc 36.3 g/dL (31.5-36.5); Mean Corpuscular Volume 85 fL (80-100); NEUTROPHILS ABSOLUTE AUTO 26.28 K/mm3 (1.96-9.15); NEUTROPHILS PERCENT AUTO 82 % (41-73); NRBC ABSOLUTE 0.00 K/mm3 (0.00-0.02); NRBC Auto 0.0 /100 WBC (0.0-0.2); Platelet Count 403 K/mm3 (150-400); RDW Coefficient Variation 13.4 % (11.7-14.2); RDW Standard Deviation 41.9 fL (35.1-46.3)
[2025-04-19 05:53] LABS: Alanine Aminotransfer (ALT/SGP 119.0 U/L (12-78); Albumin, Blood 1.5 g/dL (3.4-5.0); Albumin/Globulin Ratio 0.3 (0.8-1.8); Anion Gap 12.0 mmol/L (3-11); Aspartate Aminotrans (AST/SGOT 152.0 U/L (12-37); Bilirubin, Total 1.1 mg/dL (0.1-1.0); Blood Urea Nitrogen 58.0 mg/dL (8-24); CO2, Blood 19.0 mmol/L (21-32); Calcium, Blood 8.1 mg/dL (8.5-10.1); Chloride, Blood 99.0 mmol/L (98-108); Creatinine, Blood 2.78 mg/dL (0.40-1.00); Globulin, Blood 5.7 g/dL (2.2-4.0); Glucose, Blood 117.0 mg/dL (70-99); Potassium, Blood 3.8 mmol/L (3.5-5.5); Sodium, Blood 126.0 mmol/L (136-145); Total Iron Binding Capacity 172.0 ug/dL (250-450); Total Protein, Blood 7.2 g/dL (6.4-8.2)
--- NOTE | 2025-04-19 06:49 | NUR ---
SHIFT SUMMARY: Pt is admitted for sepsis and is a full code. Is alert and able to make needs known. ADLs have been IND. denies pain or discomfort when asked. Power glide to left upper is patent with dressing that is CDI. daryay noted sinus in the 100s with no events.
[2025-04-19] MEDS ORDERED: Albumin (Human) 25gm/100ml 100 ML IV SCH (09:00)
[2025-04-19] MEDS ORDERED: Furosemide 10 MG / ML 2ML Vial IV SCH (13:00)
--- NOTE | 2025-04-19 18:22 | NUR ---
NOTE PT ALERT. UP IN CHAIR AT BEDSIDE. VSS. CBG 59 PRIOR TO DINNER. GAVE PT A PEPSI AND SNACK. PT CBG INCREASED TO 90. SHE DIDN'T CARE FOR DINNER-TOO SPICY. PROVIDED FOOD FROM THE KITCHEN. UP AD PATRICIA. GAIT STEADY. ALBUMIN INFUSING. DENIED PAIN. DRY HACKING COUGH-NON PRODUCTIVE. PT SHOWERED. REMOVED IV SITE FROM LEFT AC THAT WAS CONVERED BY POWER GLIDE DRESSING. BLE EDEMA 2+. VOIDING. STRICT I/O. CARE ONGOING.
[2025-04-20] VITALS (10 sets, daily range): BP systolic 123–174; BP diastolic 49–70
[2025-04-20 05:03] LABS: BASOPHILS ABSOLUTE AUTO 0.05 K/mm3 (0.00-0.23); BASOPHILS PERCENT AUTO 0 % (0-2); EOSINOPHILS ABSOLUTE AUTO 0.15 K/mm3 (0.00-0.68); EOSINOPHILS PERCENT AUTO 1 % (0-6); Hematocrit 20.0 % (33.0-51.0); Hemoglobin 7.3 g/dL (11.5-16.0); Mean Corpuscular HGB Conc 36.5 g/dL (31.5-36.5); Mean Corpuscular Volume 86 fL (80-100); NRBC ABSOLUTE 0.00 K/mm3 (0.00-0.02); NRBC Auto 0.0 /100 WBC (0.0-0.2); Platelet Count 431 K/mm3 (150-400); RDW Coefficient Variation 13.8 % (11.7-14.2); RDW Standard Deviation 42.4 fL (35.1-46.3)
[2025-04-20 05:08] LABS: IMMATURE GRAN ABSOLUTE AUTO 0.35 K/mm3 (0.00-0.10); IMMATURE GRAN PERCENT AUTO 1 % (0-1); LYMPHOCYTES ABSOLUTE AUTO 2.97 K/mm3 (0.84-5.20); LYMPHOCYTES PERCENT AUTO 11 % (21-46); MONOCYTES ABSOLUTE AUTO 1.28 K/mm3 (0.16-1.47); MONOCYTES PERCENT AUTO 5 % (4-13); NEUTROPHILS ABSOLUTE AUTO 21.60 K/mm3 (1.96-9.15); NEUTROPHILS PERCENT AUTO 82 % (41-73)
[2025-04-20 05:27] LABS: Alanine Aminotransfer (ALT/SGP 99 U/L (12-78); Albumin, Blood 2.1 g/dL (3.4-5.0); Albumin/Globulin Ratio 0.4 (0.8-1.8); Anion Gap 12 mmol/L (3-11); Aspartate Aminotrans (AST/SGOT 118 U/L (12-37); Bilirubin, Total 1.0 mg/dL (0.1-1.0); Blood Urea Nitrogen 59 mg/dL (8-24); CO2, Blood 19 mmol/L (21-32); Calcium, Blood 8.0 mg/dL (8.5-10.1); Chloride, Blood 99 mmol/L (98-108); Creatinine, Blood 2.84 mg/dL (0.40-1.00); Globulin, Blood 5.0 g/dL (2.2-4.0); Glucose, Blood 155 mg/dL (70-99); Phosphorus, Blood 4.5 mg/dL (2.5-4.9); Potassium, Blood 3.6 mmol/L (3.5-5.5); Sodium, Blood 126 mmol/L (136-145); Total Protein, Blood 7.1 g/dL (6.4-8.2)
[2025-04-20 13:48] LABS: Hematocrit 18.6 % (33.0-51.0); Hemoglobin 6.7 g/dL (11.5-16.0)
--- NOTE | 2025-04-20 14:24 | NUR ---
LAB VALUE REPORTED H/H TO DR AGUILA AND DR MOORE. DR MOORE COMING TO DO CONSNET ON THE BLOOD CONCET. CARE ONGOING.
[2025-04-20] MEDS ORDERED: Cyanocobalamin 1000 MCG/ML 1ML Vial IM ONE (14:40)
[2025-04-20] MEDS ORDERED: NS 500 ML IV SCH (14:45)
--- NOTE | 2025-04-20 15:44 | NUR ---
ANTIBIOTIC GIVING ANTIBIOTIC EARLY D/T ORDERED BLOOD TRANSFUSION. PT IN AGREEMENT. CARE ONGOING.
[2025-04-20] MEDS ORDERED: Pantoprazole Sodium 40 MG Injection IV SCH (16:30)
--- NOTE | 2025-04-20 17:51 | NUR ---
NOTE PT DEX. UP IN RECLINER AT BEDSIDE. MUCH IMPROVED MOOD. LIGHTS ON, DOOR OPEN. VISITING WITH STAFF. SHE HAS BEEN KEEPING HER LEGS ELEVATED. DECREASED URINE OUTPT EMILY. AWAITING T/C FOR 1 UNIT PRBC. ALBUMIN INFUSING. LASIX GIVEN. PT MEDICATED FOR PAIN X2 TODAY. PT DECLINED KARI HOSE. GOOD APPETITE TODAY. BED LOW AND LOCKED. VSS. STOOL QUIAC SENT TO LAB PER ORDER. BED LOW AND LOCKED. CALL LIGHT IN HER LAP. CARE ONGOING.
--- NOTE | 2025-04-20 22:12 | NUR ---
Blood transfusion of 1 unit PRBC started about 2039 ended about 2199. Was started with 2nd charge JAIMEE Sotelo as primary. Over the infusion SBP was noted to be elevated about 20 points from start. Temp elevated just over 1 point with ending temp of 100.1 oral and 100.2 forehead. Lungs were clear. No change in respirations. When asked and pain, itch or nausea, she stated i don t have any of those things. Provider contact for repeat H&H. he was informed that start HGB was 6.7 and was given 1 unit PRBC. he stated no repeat H&H needed at this time but to double check and make sure CBC was in for AM labs. CBC confirmed for AM labs. He also stated that in SX for possible bleeding it was ok to run STAT H&H. APAP offered and declined by PT.
--- NOTE | 2025-04-21 00:11 | NUR ---
JOB HONER raised concern for VS to this LN. upon review pulse, temp and respirations were elevated and PT was stating that she was short of breath. Lungs were clear and SPO2 was 94%. LN notified 2nd charge and provider of findings. Informed provider that PT finished getting one unit of PRBC about 90min ago but was also in for urosepsis and PNA. provider gave T.O. for give APAP. provider was informed that 650 was given just before the phone call. He stated ok to give 500mg more in about an hour one time if temp was not resolving. Stated with other issues not sure change was related to reaction to PRBC or if it was due to infections. He stated that if temp resolves other VS should resolve as well but to keep monitoring.
[2025-04-21 04:45] VITALS: BP 123/58
[2025-04-21 05:10] LABS: Hematocrit 19.7 % (33.0-51.0); Hemoglobin 7.2 g/dL (11.5-16.0); Mean Corpuscular HGB Conc 36.5 g/dL (31.5-36.5); Mean Corpuscular Volume 85 fL (80-100); NRBC ABSOLUTE 0.00 K/mm3 (0.00-0.02); NRBC Auto 0.0 /100 WBC (0.0-0.2); Platelet Count 487 K/mm3 (150-400); RDW Coefficient Variation 13.2 % (11.7-14.2); RDW Standard Deviation 39.5 fL (35.1-46.3)
[2025-04-21 05:45] LABS: Alanine Aminotransfer (ALT/SGP 98.0 U/L (12-78); Albumin, Blood 2.4 g/dL (3.4-5.0); Albumin/Globulin Ratio 0.5 (0.8-1.8); Anion Gap 12.0 mmol/L (3-11); Aspartate Aminotrans (AST/SGOT 151.0 U/L (12-37); Bilirubin, Total 1.0 mg/dL (0.1-1.0); Blood Urea Nitrogen 60.0 mg/dL (8-24); CO2, Blood 18.0 mmol/L (21-32); Calcium, Blood 8.1 mg/dL (8.5-10.1); Chloride, Blood 98.0 mmol/L (98-108); Creatinine, Blood 3.05 mg/dL (0.40-1.00); Globulin, Blood 4.6 g/dL (2.2-4.0); Glucose, Blood 80.0 mg/dL (70-99); Potassium, Blood 3.3 mmol/L (3.5-5.5); Sodium, Blood 125.0 mmol/L (136-145); Total Protein, Blood 7.0 g/dL (6.4-8.2)
[2025-04-21 05:51] LABS: BASOPHILS ABSOLUTE MAN 0.00 K/mm3 (0.00-0.23); BASOPHILS PERCENT MAN 0 % (0-2); EOSINOPHILS ABSOLUTE MAN 0.00 K/mm3 (0.00-0.68); EOSINOPHILS PERCENT MAN 0 % (0-6); LYMPHOCYTES ABSOLUTE MAN 1.43 K/mm3 (0.84-5.20); LYMPHOCYTES PERCENT MAN 5 % (21-46); MONOCYTES ABSOLUTE MAN 0.28 K/mm3 (0.16-1.47); MONOCYTES PERCENT MAN 1 % (4-13); NEUTROPHILS ABSOLUTE MAN 27.05 K/mm3 (1.96-9.15); SEG NEUTROPHILS PERCENT MAN 94 % (41-73)
--- NOTE | 2025-04-21 06:32 | NUR ---
SHIFT SUMMARY: Pt is admitted for sepsis and is a full code. Is alert and able to make needs known. ADLs have been IND. denies pain or discomfort when asked. Power glide to left upper is patent with dressing that is CDI. telly noted sinus in the 90s with no events.
[2025-04-21 07:35] VITALS: BP 109/79
[2025-04-21 12:03] LABS: Hematocrit 22.8 % (33.0-51.0); Hemoglobin 8.4 g/dL (11.5-16.0)
[2025-04-21 12:32] LABS: Stool Occult Bld Immuno 1 Negative (NEGATIVE)
[2025-04-21 12:52] VITALS: BP 141/54
--- NOTE | 2025-04-21 16:57 | NUR ---
SHIFT SUMMARY NO ACUTE CHANGES, A/Ox4, ABLE TO MAKE NEEDS KNOWN. INDEPENDENT TO BR AND TOLERATING AMBULATION WELL. URINE OUTPUT ADEQUATE THROUGHOUT SHIFT. PT DENIES PAIN. NONPRODUCTIVE COUGH. ON RA. SCD TOLERATED BY PT. INSULIN ADMINISTERED PER ORDERS/SLIDING SCALE. REPEAT IMAGING COMPLETED. PT CURRENTLY SITTING UP IN CHAIR WITH CALL LIGHT IN REACH, NO S/SX OF DISTRESS. PT DENIES ANY NEEDS AT THIS TIME.
[2025-04-21 16:58] VITALS: BP 141/61
--- NOTE | 2025-04-21 17:35 | NUR ---
CBG 66 PRIOR TO DINNER - PER PROTOCOL AND MD INSTRUCTIONS AC DOSE OF 15 UNITS KWIKPEN HELD, APPLE JUICE AND DINNER PROVIDED. PT ASYMPTOMATIC AT THIS TIME. EATING HER DINNER AND DRINKING THE APPLE JUICE. WILL RECHECK CBG IN 15 MINUTES.
[2025-04-21] MEDS ORDERED: Piperacillin/Tazobactam Sod 2.25 GM in NS 50 ML IV SCH (18:00)
[2025-04-21 18:37] LABS: Hematocrit 24.0 % (33.0-51.0); Hemoglobin 8.6 g/dL (11.5-16.0)
[2025-04-21 18:58] LABS: Source, Urine Clean Catch
[2025-04-21 19:04] LABS: Bilirubin, Urine Neg (Neg); Color, Urine Yellow (P-Yellow); Glucose Qualitative, Urine Neg (Neg); Ketones, Urine Neg (Neg); Leukocyte Esterase, Urine 3+ (Neg); Protein, Urine 1+ (Neg); Specific Gravity, Urine 1.010 (1.003-1.022); Urobilinogen, Urine NORM (Normal)
[2025-04-21 19:13] LABS: White Blood Cells, Urine 25-50 /hpf (0-5)
[2025-04-21 20:09] VITALS: BP 148/60
[2025-04-21] MEDS ORDERED: Lactobacil 2-S.Thermo-Bifido 1 1 Cap PO SCH (21:00)
[2025-04-22] VITALS (7 sets, daily range): BP systolic 117–150; BP diastolic 49–104
--- NOTE | 2025-04-22 04:04 | NUR ---
PT HAD A TEMP OF 101.5 WITH MIDNIGHT VITALS, WAS GIVEN 650MG TYLENOL, FOLLOW UP TEMP WAS 98.5. PT O2 SAT WAS ALSO IN THE MID 80'S, PT WAS PLACED ON 2L NC AND FELT MUCH MORE COMFORTABLE.
[2025-04-22 05:26] LABS: BASOPHILS ABSOLUTE AUTO 0.06 K/mm3 (0.00-0.23); BASOPHILS PERCENT AUTO 0 % (0-2); EOSINOPHILS ABSOLUTE AUTO 0.08 K/mm3 (0.00-0.68); EOSINOPHILS PERCENT AUTO 0 % (0-6); Hematocrit 21.6 % (33.0-51.0); Hemoglobin 7.9 g/dL (11.5-16.0); IMMATURE GRAN ABSOLUTE AUTO 0.21 K/mm3 (0.00-0.10); IMMATURE GRAN PERCENT AUTO 1 % (0-1); LYMPHOCYTES ABSOLUTE AUTO 1.91 K/mm3 (0.84-5.20); LYMPHOCYTES PERCENT AUTO 8 % (21-46); MONOCYTES ABSOLUTE AUTO 0.93 K/mm3 (0.16-1.47); MONOCYTES PERCENT AUTO 4 % (4-13); Mean Corpuscular HGB Conc 36.6 g/dL (31.5-36.5); Mean Corpuscular Volume 84 fL (80-100); NEUTROPHILS ABSOLUTE AUTO 21.46 K/mm3 (1.96-9.15); NEUTROPHILS PERCENT AUTO 87 % (41-73); NRBC ABSOLUTE 0.00 K/mm3 (0.00-0.02); NRBC Auto 0.0 /100 WBC (0.0-0.2); Platelet Count 564 K/mm3 (150-400); RDW Coefficient Variation 13.9 % (11.7-14.2); RDW Standard Deviation 40.7 fL (35.1-46.3)
[2025-04-22 05:54] LABS: Alanine Aminotransfer (ALT/SGP 101.0 U/L (12-78); Albumin, Blood 2.3 g/dL (3.4-5.0); Albumin/Globulin Ratio 0.4 (0.8-1.8); Anion Gap 13.0 mmol/L (3-11); Aspartate Aminotrans (AST/SGOT 158.0 U/L (12-37); Bilirubin, Total 0.9 mg/dL (0.1-1.0); Blood Urea Nitrogen 57.0 mg/dL (8-24); CO2, Blood 20.0 mmol/L (21-32); Calcium, Blood 8.0 mg/dL (8.5-10.1); Chloride, Blood 97.0 mmol/L (98-108); Creatinine, Blood 3.26 mg/dL (0.40-1.00); Globulin, Blood 5.2 g/dL (2.2-4.0); Glucose, Blood 83.0 mg/dL (70-99); Potassium, Blood 3.3 mmol/L (3.5-5.5); Sodium, Blood 127.0 mmol/L (136-145); Total Protein, Blood 7.5 g/dL (6.4-8.2); Uric Acid, Blood 8.0 mg/dL (2.6-6.0)
[2025-04-22] MEDS ORDERED: Torsemide 20 MG TAB PO SCH (09:00)
[2025-04-22] MEDS ORDERED: Insulin Glargine 100 Unit/ML 3 ML SYR SC ONE (09:40)
[2025-04-22 11:42] LABS: Ferritin, Serum 651 ng/mL (8-252); Total Iron Binding Capacity 206 ug/dL (250-450)
--- NOTE | 2025-04-22 16:58 | NUR ---
SHIFT SUMMARY NO ACUTE CHANGES. A/Ox4. ABLE TO MAKE NEEDS KNOWN AND CALLS APPROPRIATELY. MEDICATED FOR PAIN PER EMAR. LOW GRADE FEVER THIS AM, NOW CURRENTLY 98.4 ORAL TEMP. SHAKES AND CHILLS UNLESS COVERED WITH BLANKETS. [place] PROVIDER AWARE. MEDICATED PER EMAR. INSULIN ADMINISTERED PER ORDERS/PROVIDER INSTRUCTION. PT USING 2 L/MIN VIA NC FOR COMFORT R/T SOB. PT CURRENTLY RESTING PEACEFULLY IN RECLINER WITH CALL LIGHT AND BELONGINGS IN REACH.
--- NOTE | 2025-04-22 17:52 | NUR ---
PER DR. SCHAEFER HOLD 1730 15 UNITS HUMALOG DUE TO CBG 84, REPEAT CBG HS PER ORDERS. PT CURRENTLY SITTING UP WITH DINNER TRAY NEAR, STATES SHE IS NOT HUNGRY AT THIS TIME. NO S/SX OF HYPOGLYCEMIA AT THIS TIME.
[2025-04-22] MEDS ORDERED: Heparin Sodium,Porcine 5,000 UNIT/0.5 ML SDV SC SCH (21:00)
--- NOTE | 2025-04-23 03:25 | NUR ---
CLIN ASST SUMMARY VSS. DX SEPSIS, RECEIVING AND TOLERATING IV ANTIBIOTICS. AFEBRILE THIS SHIFT. A/O X 4. COOPERATIVE WITH CARE. UP AD PATRICIA WITH ASSIST. ACCU CHECK AT HS WAS 79, ENCOURAGED TO EAT SNACK, TOLERATED CHEESE AND CRACKERS WELL. ASYMPTOMATIC. TELE - SR IN THE 90'S WITH ST DEG HB. HAS BEEN RESTING QUIETLY WITH FEW INTERRUPTIONS SINCE. CALL LIGHT IN REACH, RAILS UP X 2 AND BED IN LOW POSITION FOR SAFETY. WILL CONTINUE TO MONITOR
[2025-04-23 04:58] VITALS: BP 145/51
[2025-04-23 05:59] LABS: BASOPHILS ABSOLUTE AUTO 0.06 K/mm3 (0.00-0.23); BASOPHILS PERCENT AUTO 0 % (0-2); EOSINOPHILS ABSOLUTE AUTO 0.10 K/mm3 (0.00-0.68); EOSINOPHILS PERCENT AUTO 1 % (0-6); Hematocrit 19.3 % (33.0-51.0); Hemoglobin 7.1 g/dL (11.5-16.0); IMMATURE GRAN ABSOLUTE AUTO 0.18 K/mm3 (0.00-0.10); IMMATURE GRAN PERCENT AUTO 1 % (0-1); LYMPHOCYTES ABSOLUTE AUTO 1.89 K/mm3 (0.84-5.20); LYMPHOCYTES PERCENT AUTO 11 % (21-46); MONOCYTES ABSOLUTE AUTO 0.76 K/mm3 (0.16-1.47); MONOCYTES PERCENT AUTO 4 % (4-13); Mean Corpuscular HGB Conc 36.8 g/dL (31.5-36.5); Mean Corpuscular Volume 84 fL (80-100); NEUTROPHILS ABSOLUTE AUTO 15.07 K/mm3 (1.96-9.15); NEUTROPHILS PERCENT AUTO 83 % (41-73); NRBC ABSOLUTE 0.00 K/mm3 (0.00-0.02); NRBC Auto 0.0 /100 WBC (0.0-0.2); Platelet Count 575 K/mm3 (150-400); RDW Coefficient Variation 14.1 % (11.7-14.2); RDW Standard Deviation 41.9 fL (35.1-46.3)
[2025-04-23 06:23] LABS: Anion Gap 12.0 mmol/L (3-11); Blood Urea Nitrogen 60.0 mg/dL (8-24); CO2, Blood 18.0 mmol/L (21-32); Calcium, Blood 7.9 mg/dL (8.5-10.1); Chloride, Blood 97.0 mmol/L (98-108); Creatinine, Blood 3.3 mg/dL (0.40-1.00); Glucose, Blood 75.0 mg/dL (70-99); Potassium, Blood 3.3 mmol/L (3.5-5.5); Sodium, Blood 124.0 mmol/L (136-145)
[2025-04-23 07:13] VITALS: BP 129/53
[2025-04-23 11:09] VITALS: BP 131/49
[2025-04-23] MEDS ORDERED: Insulin Regular 100 UNIT/ML 10ML Vial SC SCH (11:30)
[2025-04-23 12:41] LABS: Hematocrit 19.3 % (33.0-51.0); Hemoglobin 7.1 g/dL (11.5-16.0)
[2025-04-23 15:08] VITALS: BP 130/60
[2025-04-23] MEDS ORDERED: DEXTROMETHORPHAN/BENZOCAINE 1 EACH LOZENGE MT PRN (17:25)
--- NOTE | 2025-04-23 18:13 | NUR ---
End of shift summary: Patient is alert and oriented x4; cooperative with care. Patient up ambulating in halls this am and in room independently. All medications adminstered per EMAR. Patient denied CP or pressure, N/V/D, or pain today, but did have SOB with exertion; oxygen PRN. No acute changes this shift. Patient utilizing call light appropriately; call light within reach, chair locked for safety. Will continue to monitor until next shift nurse arrives and report is given.
[2025-04-23 18:47] LABS: Hematocrit 19.1 % (33.0-51.0); Hemoglobin 7.0 g/dL (11.5-16.0)
[2025-04-23 19:17] VITALS: BP 131/51
--- NOTE | 2025-04-24 03:10 | NUR ---
SHIFT SUMMARY: AOX4. INDEPENDENT IN ROOM. VSS. LUNG SOUNDS DIMINISHED IN THE [place] LOWER LOBES. PT DOES HAVE 2+ EDEMA TO BLE. CALL LIGHT IS WITHIN REACH. BED IS LOW AND LOCKED.
[2025-04-24 03:18] VITALS: BP 148/56
[2025-04-24 04:46] LABS: BASOPHILS ABSOLUTE AUTO 0.05 K/mm3 (0.00-0.23); BASOPHILS PERCENT AUTO 0 % (0-2); EOSINOPHILS ABSOLUTE AUTO 0.08 K/mm3 (0.00-0.68); EOSINOPHILS PERCENT AUTO 1 % (0-6); Hematocrit 18.6 % (33.0-51.0); Hemoglobin 6.7 g/dL (11.5-16.0); IMMATURE GRAN ABSOLUTE AUTO 0.17 K/mm3 (0.00-0.10); IMMATURE GRAN PERCENT AUTO 1 % (0-1); LYMPHOCYTES ABSOLUTE AUTO 1.37 K/mm3 (0.84-5.20); LYMPHOCYTES PERCENT AUTO 8 % (21-46); MONOCYTES ABSOLUTE AUTO 0.77 K/mm3 (0.16-1.47); MONOCYTES PERCENT AUTO 4 % (4-13); Mean Corpuscular HGB Conc 36.0 g/dL (31.5-36.5); Mean Corpuscular Volume 84 fL (80-100); NEUTROPHILS ABSOLUTE AUTO 14.99 K/mm3 (1.96-9.15); NEUTROPHILS PERCENT AUTO 86 % (41-73); NRBC ABSOLUTE 0.00 K/mm3 (0.00-0.02); NRBC Auto 0.0 /100 WBC (0.0-0.2); Platelet Count 527 K/mm3 (150-400); RDW Coefficient Variation 14.3 % (11.7-14.2); RDW Standard Deviation 42.5 fL (35.1-46.3)
[2025-04-24 06:54] LABS: Albumin, Blood 1.9 g/dL (3.4-5.0); Anion Gap 15 mmol/L (3-11); Blood Urea Nitrogen 65 mg/dL (8-24); CO2, Blood 16 mmol/L (21-32); Calcium, Blood 8.1 mg/dL (8.5-10.1); Chloride, Blood 97 mmol/L (98-108); Creatinine, Blood 3.62 mg/dL (0.40-1.00); Glucose, Blood 199 mg/dL (70-99); Phosphorus, Blood 5.7 mg/dL (2.5-4.9); Potassium, Blood 3.5 mmol/L (3.5-5.5); Prealbumin, Blood 8.4 mg/dL (20.0-40.0); Sodium, Blood 124 mmol/L (136-145)
[2025-04-24 07:36] VITALS: BP 131/48
[2025-04-24] MEDS ORDERED: Torsemide 20 MG TAB PO SCH (09:00)
[2025-04-24 12:10] VITALS: BP 129/51
[2025-04-24 12:32] VITALS: BP 125/54
[2025-04-24 12:35] VITALS: BP 125/54
[2025-04-24] MEDS ORDERED: Piperacillin/Tazobactam Sod 2.25 GM in NS 50 ML IV SCH (15:00)
[2025-04-24] MEDS ORDERED: Albuterol 2.5 MG/3 ML VIAL INH PRN (18:55)
[2025-04-24 19:52] VITALS: BP 139/57
[2025-04-25 03:38] VITALS: BP 146/60
[2025-04-25 05:31] LABS: BASOPHILS ABSOLUTE AUTO 0.05 K/mm3 (0.00-0.23); BASOPHILS PERCENT AUTO 0 % (0-2); EOSINOPHILS ABSOLUTE AUTO 0.09 K/mm3 (0.00-0.68); EOSINOPHILS PERCENT AUTO 1 % (0-6); Hematocrit 23.2 % (33.0-51.0); Hemoglobin 8.4 g/dL (11.5-16.0); IMMATURE GRAN ABSOLUTE AUTO 0.13 K/mm3 (0.00-0.10); IMMATURE GRAN PERCENT AUTO 1 % (0-1); LYMPHOCYTES ABSOLUTE AUTO 2.10 K/mm3 (0.84-5.20); LYMPHOCYTES PERCENT AUTO 12 % (21-46); MONOCYTES ABSOLUTE AUTO 0.66 K/mm3 (0.16-1.47); MONOCYTES PERCENT AUTO 4 % (4-13); Mean Corpuscular HGB Conc 36.2 g/dL (31.5-36.5); Mean Corpuscular Volume 84 fL (80-100); NEUTROPHILS ABSOLUTE AUTO 14.43 K/mm3 (1.96-9.15); NEUTROPHILS PERCENT AUTO 83 % (41-73); NRBC ABSOLUTE 0.00 K/mm3 (0.00-0.02); NRBC Auto 0.0 /100 WBC (0.0-0.2); Platelet Count 658 K/mm3 (150-400); RDW Coefficient Variation 14.4 % (11.7-14.2); RDW Standard Deviation 42.5 fL (35.1-46.3)
[2025-04-25 05:50] LABS: Albumin, Blood 2.1 g/dL (3.4-5.0); Anion Gap 15 mmol/L (3-11); Blood Urea Nitrogen 64 mg/dL (8-24); CO2, Blood 17 mmol/L (21-32); Calcium, Blood 8.2 mg/dL (8.5-10.1); Chloride, Blood 101 mmol/L (98-108); Creatinine, Blood 3.38 mg/dL (0.40-1.00); Glucose, Blood 59 mg/dL (70-99); Phosphorus, Blood 5.0 mg/dL (2.5-4.9); Potassium, Blood 3.7 mmol/L (3.5-5.5); Sodium, Blood 129 mmol/L (136-145)
[2025-04-25 07:35] VITALS: BP 170/67
[2025-04-25] MEDS ORDERED: Piperacillin/Tazobactam Sod 2.25 GM in NS 50 ML IV SCH (08:00)
[2025-04-25 13:48] LABS: COMPLEMENT COMPONENT 3 164 mg/dL (90-180); COMPLEMENT COMPONENT 4 25 mg/dL (10-40)
[2025-04-25 15:13] VITALS: BP 135/62
[2025-04-25] MEDS ORDERED: NOVOLOG FL100 UNIT/3 SC (16:16)
[2025-04-25] MEDS ORDERED: FOLIC ACID0.4 MG PO (17:09)
--- NOTE | 2025-04-25 18:11 | NUR ---
SHIFT SUMMARY PT AOX4, COOPERATIVE, ABLE TO MAKE NEEDS KOWN. PT ON ISO FOR SHINGLES THAT HAVE NOT CRUSTED OVER. ON 2L O2 PRN. TOLERATING MEDICATIONS. PT DOES HAVE ABRASIVE PERSONALITY. BED IN LOWEST POSITION, CALL LIGHT WITHIN REACH.
[2025-04-25 19:42] VITALS: BP 146/60
[2025-04-25 19:51] LABS: ALPHA 1 GLOBULIN 0.64 g/dL (0.19-0.46); ALPHA 2 GLOBULIN 0.92 g/dL (0.48-1.05); BETA GLOBULIN 1.40 g/dL (0.48-1.10); GAMMA 1.80 g/dL (0.62-1.51); IMMUNOFIXATION REFLEX IFE Done
[2025-04-25] MEDS ORDERED: NS 50 ML IV ONE (20:03)
[2025-04-26 03:21] VITALS: BP 171/59
--- NOTE | 2025-04-26 05:35 | NUR ---
SHIFT SUMMARY PT REMAINS ON ISOLATION FOR SHINGLES RASH TO LOW BACK. PT DENIES PAIN. PT USING O2 AT 2L NC INTERMITTENTLY DURING THE NIGHT. PT WITH INCREASED WORK OF BREATHING WITH ACTIVITY. PT INDEPENDENT IN ROOM. T-MAX 100.3, MEDICATED WITH TYLENOL PER EMAR. IV ANTIBIOTICS CONTINUE PER ORDER. PT SLEPT SHORT INTERVALS ONLY DURING THE NIGHT.
[2025-04-26 07:31] VITALS: BP 147/61
[2025-04-26] MEDS ORDERED: Insulin Glargine-Yfgn 100 Unit/mL 3 ML SYR SC SCH (09:00)
[2025-04-26] MEDS ORDERED: Insulin Glargine 100 Unit/ML 3 ML SYR SC SCH (09:00)
[2025-04-26 09:16] LABS: BASOPHILS ABSOLUTE AUTO 0.07 K/mm3 (0.00-0.23); BASOPHILS PERCENT AUTO 0 % (0-2); EOSINOPHILS ABSOLUTE AUTO 0.03 K/mm3 (0.00-0.68); EOSINOPHILS PERCENT AUTO 0 % (0-6); Hematocrit 20.6 % (33.0-51.0); Hemoglobin 7.4 g/dL (11.5-16.0); IMMATURE GRAN ABSOLUTE AUTO 0.12 K/mm3 (0.00-0.10); IMMATURE GRAN PERCENT AUTO 1 % (0-1); LYMPHOCYTES ABSOLUTE AUTO 2.01 K/mm3 (0.84-5.20); LYMPHOCYTES PERCENT AUTO 11 % (21-46); MONOCYTES ABSOLUTE AUTO 0.84 K/mm3 (0.16-1.47); MONOCYTES PERCENT AUTO 5 % (4-13); Mean Corpuscular HGB Conc 35.9 g/dL (31.5-36.5); Mean Corpuscular Volume 85 fL (80-100); NEUTROPHILS ABSOLUTE AUTO 15.06 K/mm3 (1.96-9.15); NEUTROPHILS PERCENT AUTO 83 % (41-73); NRBC ABSOLUTE 0.00 K/mm3 (0.00-0.02); NRBC Auto 0.0 /100 WBC (0.0-0.2); Platelet Count 504 K/mm3 (150-400); RDW Coefficient Variation 14.6 % (11.7-14.2); RDW Standard Deviation 43.8 fL (35.1-46.3)
[2025-04-26 09:36] LABS: Albumin, Blood 1.9 g/dL (3.4-5.0); Anion Gap 13 mmol/L (3-11); Blood Urea Nitrogen 56 mg/dL (8-24); CO2, Blood 18 mmol/L (21-32); Calcium, Blood 8.2 mg/dL (8.5-10.1); Chloride, Blood 101 mmol/L (98-108); Creatinine, Blood 3.08 mg/dL (0.40-1.00); Glucose, Blood 266 mg/dL (70-99); Phosphorus, Blood 5.0 mg/dL (2.5-4.9); Potassium, Blood 3.8 mmol/L (3.5-5.5); Sodium, Blood 128 mmol/L (136-145)
[2025-04-26 13:13] LABS: COMPLEMENT COMPONENT 3 145 mg/dL (90-180); COMPLEMENT COMPONENT 4 23 mg/dL (10-40)
[2025-04-26 14:55] VITALS: BP 150/63
[2025-04-26] MEDS ORDERED: Insulin Human Lispro 100 Units/ML 3ML Syringe SC SCH (18:00)
--- NOTE | 2025-04-26 18:25 | NUR ---
END OF SHIFT. PATIENT IND IN ROOM, SHOWERED TODAY. NEW POWERGLIDE PLACED TODAY. NEW CBG ORDERS AND NEW COVERAGE ORDER (Q6 UNTIL CONTROLLED). PATIENT EDUCATED ABOUT DIET AND MONITORING SUGAR LEVELS. PATIENT DID NOT EAT WELL TODAY BUT HAD SNACKS IN ROOM INSTEAD. DISCUSSED BALANCED DIETS FOR HEALTHY SUGAR MONITORING. NO OTHER COMPLAINTS TODAY.
[2025-04-26 19:38] VITALS: BP 160/54
[2025-04-27 04:33] VITALS: BP 144/54
[2025-04-27] MEDS ORDERED: Saline Nasal Spray 45 ML PRN (04:45)
[2025-04-27 06:13] LABS: BASOPHILS ABSOLUTE AUTO 0.06 K/mm3 (0.00-0.23); BASOPHILS PERCENT AUTO 0 % (0-2); EOSINOPHILS ABSOLUTE AUTO 0.10 K/mm3 (0.00-0.68); EOSINOPHILS PERCENT AUTO 1 % (0-6); Hematocrit 22.6 % (33.0-51.0); Hemoglobin 7.8 g/dL (11.5-16.0); IMMATURE GRAN ABSOLUTE AUTO 0.07 K/mm3 (0.00-0.10); IMMATURE GRAN PERCENT AUTO 0 % (0-1); LYMPHOCYTES ABSOLUTE AUTO 2.89 K/mm3 (0.84-5.20); LYMPHOCYTES PERCENT AUTO 18 % (21-46); MONOCYTES ABSOLUTE AUTO 0.76 K/mm3 (0.16-1.47); MONOCYTES PERCENT AUTO 5 % (4-13); Mean Corpuscular HGB Conc 34.5 g/dL (31.5-36.5); Mean Corpuscular Volume 88 fL (80-100); NEUTROPHILS ABSOLUTE AUTO 11.85 K/mm3 (1.96-9.15); NEUTROPHILS PERCENT AUTO 75 % (41-73); NRBC ABSOLUTE 0.00 K/mm3 (0.00-0.02); NRBC Auto 0.0 /100 WBC (0.0-0.2); Platelet Count 529 K/mm3 (150-400); RDW Coefficient Variation 15.0 % (11.7-14.2); RDW Standard Deviation 46.3 fL (35.1-46.3)
--- NOTE | 2025-04-27 06:27 | NUR ---
SHIFT SUMMARY PT C/O NASAL STUFFINESS DURING THE NIGHT. ORDER RECEIVED FOR SEA SPRAY, WHICH WAS GIVEN. PT INDEPENDENT IN ROOM. PT HAS NOT USED O2 DURING THE SHIFT, AND APPEARS TO BE BREATHING EASIER THAN PREVIOUS NIGHT. POWERGLIDE DID NOT DRAW BLOOD THIS AM, BUT IS INFUSING WITHOUT ISSUE. PT SLEPT INTERMITTENTLY DURING THE SHIFT.
[2025-04-27 06:39] LABS: Albumin, Blood 2.1 g/dL (3.4-5.0); Anion Gap 11 mmol/L (3-11); Blood Urea Nitrogen 47 mg/dL (8-24); CO2, Blood 22 mmol/L (21-32); Calcium, Blood 8.9 mg/dL (8.5-10.1); Chloride, Blood 103 mmol/L (98-108); Creatinine, Blood 2.78 mg/dL (0.40-1.00); Glucose, Blood 124 mg/dL (70-99); Phosphorus, Blood 3.9 mg/dL (2.5-4.9); Potassium, Blood 3.7 mmol/L (3.5-5.5); Sodium, Blood 132 mmol/L (136-145)
[2025-04-27 07:31] VITALS: BP 152/83
[2025-04-27 16:10] VITALS: BP 154/59
--- NOTE | 2025-04-27 17:09 | NUR ---
END OF SHIFT PATIENT DID WELL EATING MEALS TODAY, CBG 242 AT LUNCH TIME. PATIENT STILL Q6 CBG WITH MEDIUM SCALE COVERAGE. NEPH CONSULT TODAY, POSSIBLY D/C TOMORROW. BREAKFAST ORDERED FOR PATIENT, AT HER REQUEST. A&O X4 TODAY AND IND IN ROOM.
[2025-04-27 19:59] VITALS: BP 162/69
[2025-04-28 04:23] VITALS: BP 156/69
--- NOTE | 2025-04-28 05:43 | NUR ---
SHIFT SUMMARY PT REMAINS ON ISOLATION FOR SHINGLES RASH. LESIONS REMAIN OPEN WITHOUT SCABBING. PT IS INDEPENDENT IN ROOM AND HAS NOT NEEDED OXYGEN. IV ANTIBIOTICS CONTINUE PER ORDER. PT SLEPT INTERMITTENTLY DURING THE NIGHT.
[2025-04-28 05:56] LABS: BASOPHILS ABSOLUTE AUTO 0.06 K/mm3 (0.00-0.23); BASOPHILS PERCENT AUTO 0 % (0-2); EOSINOPHILS ABSOLUTE AUTO 0.24 K/mm3 (0.00-0.68); EOSINOPHILS PERCENT AUTO 2 % (0-6); Hematocrit 21.0 % (33.0-51.0); Hemoglobin 7.2 g/dL (11.5-16.0); IMMATURE GRAN ABSOLUTE AUTO 0.10 K/mm3 (0.00-0.10); IMMATURE GRAN PERCENT AUTO 1 % (0-1); LYMPHOCYTES ABSOLUTE AUTO 2.56 K/mm3 (0.84-5.20); LYMPHOCYTES PERCENT AUTO 19 % (21-46); MONOCYTES ABSOLUTE AUTO 0.67 K/mm3 (0.16-1.47); MONOCYTES PERCENT AUTO 5 % (4-13); Mean Corpuscular HGB Conc 34.3 g/dL (31.5-36.5); Mean Corpuscular Volume 88 fL (80-100); NEUTROPHILS ABSOLUTE AUTO 10.11 K/mm3 (1.96-9.15); NEUTROPHILS PERCENT AUTO 74 % (41-73); NRBC ABSOLUTE 0.00 K/mm3 (0.00-0.02); NRBC Auto 0.0 /100 WBC (0.0-0.2); Platelet Count 440 K/mm3 (150-400); RDW Coefficient Variation 14.8 % (11.7-14.2); RDW Standard Deviation 45.9 fL (35.1-46.3)
[2025-04-28 06:19] LABS: Albumin, Blood 2.0 g/dL (3.4-5.0); Anion Gap 12 mmol/L (3-11); Blood Urea Nitrogen 42 mg/dL (8-24); CO2, Blood 20 mmol/L (21-32); Calcium, Blood 8.7 mg/dL (8.5-10.1); Chloride, Blood 102 mmol/L (98-108); Creatinine, Blood 2.68 mg/dL (0.40-1.00); Glucose, Blood 289 mg/dL (70-99); Phosphorus, Blood 4.2 mg/dL (2.5-4.9); Potassium, Blood 3.8 mmol/L (3.5-5.5); Sodium, Blood 130 mmol/L (136-145)
[2025-04-28] MEDS ORDERED: Insulin Regular 100 UNIT/ML 10ML Vial SC SCH (07:30)
[2025-04-28 08:06] VITALS: BP 164/62
[2025-04-28 15:53] VITALS: BP 165/59
--- NOTE | 2025-04-28 18:21 | NUR ---
Pt up indep in room, is upset about not getting to go home, has been cooperative with care, pt had a shower today, and linen changed, no acute changes this shift, call light in reach.
[2025-04-28 20:49] VITALS: BP 150/60
[2025-04-28] MEDS ORDERED: Insulin Human Lispro 100 Units/ML 3ML Syringe SC SCH (21:00)
[2025-04-29 03:47] VITALS: BP 146/67
--- NOTE | 2025-04-29 04:30 | NUR ---
SHIFT SUMMARY NO ACUTE EVENTS DURING THIS SHIFT. IV ABX INFUSED ORDERED. VSS. PT C/O MIGRAINE JACOBS, MEDICATED PER EMAR. PT IS A/O X4, COOPERATIVE WITH CARE AND ABLE TO MAKE HER NEEDS KNOWN. PT WOULD LIKE TO D/C HOME TODAY. SHINGLES/BISTERS APPEAR DRY ON THE SACRAL AREA. DISTANCE EDUCATION COORDINATOR. ENCOURAGED REPOSITIONING. BED AT THE LOWEST POSITION, CALL LIGHT W/ REACH. HS B, INSULIN ADMIN ORDERED.
[2025-04-29 05:14] LABS: BASOPHILS ABSOLUTE AUTO 0.06 K/mm3 (0.00-0.23); BASOPHILS PERCENT AUTO 0 % (0-2); EOSINOPHILS ABSOLUTE AUTO 0.09 K/mm3 (0.00-0.68); EOSINOPHILS PERCENT AUTO 1 % (0-6); Hematocrit 21.7 % (33.0-51.0); Hemoglobin 7.5 g/dL (11.5-16.0); IMMATURE GRAN ABSOLUTE AUTO 0.09 K/mm3 (0.00-0.10); IMMATURE GRAN PERCENT AUTO 1 % (0-1); LYMPHOCYTES ABSOLUTE AUTO 2.39 K/mm3 (0.84-5.20); LYMPHOCYTES PERCENT AUTO 15 % (21-46); MONOCYTES ABSOLUTE AUTO 0.63 K/mm3 (0.16-1.47); MONOCYTES PERCENT AUTO 4 % (4-13); Mean Corpuscular HGB Conc 34.6 g/dL (31.5-36.5); Mean Corpuscular Volume 88 fL (80-100); NEUTROPHILS ABSOLUTE AUTO 13.21 K/mm3 (1.96-9.15); NEUTROPHILS PERCENT AUTO 80 % (41-73); NRBC ABSOLUTE 0.00 K/mm3 (0.00-0.02); NRBC Auto 0.0 /100 WBC (0.0-0.2); Platelet Count 419 K/mm3 (150-400); RDW Coefficient Variation 15.2 % (11.7-14.2); RDW Standard Deviation 46.5 fL (35.1-46.3)
[2025-04-29 05:43] LABS: Alanine Aminotransfer (ALT/SGP 62.0 U/L (12-78); Albumin, Blood 2.2 g/dL (3.4-5.0); Albumin/Globulin Ratio 0.4 (0.8-1.8); Anion Gap 13.0 mmol/L (3-11); Aspartate Aminotrans (AST/SGOT 43.0 U/L (12-37); Bilirubin, Total 0.7 mg/dL (0.1-1.0); Blood Urea Nitrogen 36.0 mg/dL (8-24); CO2, Blood 20.0 mmol/L (21-32); Calcium, Blood 8.9 mg/dL (8.5-10.1); Chloride, Blood 100.0 mmol/L (98-108); Creatinine, Blood 2.5 mg/dL (0.40-1.00); Globulin, Blood 5.6 g/dL (2.2-4.0); Glucose, Blood 235.0 mg/dL (70-99); Phosphorus, Blood 3.6 mg/dL (2.5-4.9); Potassium, Blood 3.6 mmol/L (3.5-5.5); Sodium, Blood 129.0 mmol/L (136-145); Total Protein, Blood 7.8 g/dL (6.4-8.2)
[2025-04-29 08:03] VITALS: BP 145/63
[2025-04-29] MEDS ORDERED: Insulin Glargine 100 Unit/ML 3 ML SYR SC SCH (09:00)
[2025-04-29] MEDS ORDERED: VALA500 PO (10:46)
[2025-04-29] MEDS ORDERED: TORSE20 PO (10:46)
--- NOTE | 2025-04-29 11:44 | NUR ---
DISCHARGE NOTE PT DISCHARGED TO HOME, PICKED UP BY HER FRIEND. PG REMOVED. PERSONAL BELONGINGS RETURNED. DISCHARGE EDUCATION AND INFORMATION REVIEWED WITH THE PT. MEDICATIONS FAXED TO THE PHARMACY OF HER CHOICE.
== END 2025-04-29 11:30 | disposition home or self-care (01) | DRG 871 ==
LOC: ER 11:53 → MEDS 17:47 → ICUE 17:47 → MEDS 04-17 21:25
PROVIDERS: Emergency Medicine; Family Medicine; Hospitalist; Internal Medicine; Internal Medicine Critical Care Medicine; Nurse Practitioner Acute Care; Physician Assistant; ADMIT Student in an Organized Health Care Education/Training Program
PROC: 5A0935A Assistance with Respiratory Ventilation, Less than 24 Consecutive Hours, High Flow/Velocity Cannula (ICD-10-PCS; principal; 2025-04-15)
PROC: 3E03329 Introduction of Other Anti-infective into Peripheral Vein, Percutaneous Approach (ICD-10-PCS; 2025-04-15)
PROC: 30233N1 Transfusion of Nonautologous Red Blood Cells into Peripheral Vein, Percutaneous Approach (ICD-10-PCS; 2025-04-24)
DX: A41.51 Sepsis due to Escherichia coli [E. coli] (principal); E11.10 Type 2 diabetes mellitus with ketoacidosis without coma; J96.01 Acute respiratory failure with hypoxia; N17.0 Acute kidney failure with tubular necrosis; E87.1 Hypo-osmolality and hyponatremia; N12 Tubulo-interstitial nephritis, not specified as acute or chronic; E46 Unspecified protein-calorie malnutrition; N18.4 Chronic kidney disease, stage 4 (severe); G47.00 Insomnia, unspecified; F32.9 Major depressive disorder, single episode, unspecified; E86.0 Dehydration; G43.709 Chronic migraine without aura, not intractable, without status migrainosus; M05.9 Rheumatoid arthritis with rheumatoid factor, unspecified; E88.09 Other disorders of plasma-protein metabolism, not elsewhere classified; E87.70 Fluid overload, unspecified; D75.839 Thrombocytosis, unspecified; D63.1 Anemia in chronic kidney disease; I12.9 Hypertensive chronic kidney disease with stage 1 through stage 4 chronic kidney disease, or unspecified chronic kidney disease; E11.22 Type 2 diabetes mellitus with diabetic chronic kidney disease; E87.6 Hypokalemia; B02.9 Zoster without complications; Z68.31 Body mass index [BMI] 31.0-31.9, adult; K21.9 Gastro-esophageal reflux disease without esophagitis; Z98.890 Other specified postprocedural states; Z87.891 Personal history of nicotine dependence; Z79.4 Long term (current) use of insulin; Z79.82 Long term (current) use of aspirin; Z79.84 Long term (current) use of oral hypoglycemic drugs; Z79.899 Other long term (current) drug therapy; Z88.5 Allergy status to narcotic agent; Z88.8 Allergy status to other drugs, medicaments and biological substances
CPT/HCPCS: 36415; 36430; 71045; 71046; 74176; 80048; 80053; 80069; 80076; 80202; 81001; 82010; 82274; 82570; 82607; 82728; 82746; 82784; 82803; 82947; 83521; 83540; 83550; 83605; 83690; 83735; 83880; 84100; 84134; 84145; 84155; 84156; 84165; 84550; 85014; 85018; 85025; 85027; 85379; 86140; 86160; 86334; 86850; 86900; 86901; 86923; 87040; 87077; 87081; 87086; 87186; 87428-QW; 87430; 93306; 94640; 94664; 94760; 94762; 96365-59; 99285-25; A6590; A9270; C1751; J0696; J1644; J1650; J1815; J1938; J2470; J2543; J3373; J3420; J3480; J7030; J7040; J7050; J7121; P9016; P9047